=== PATIENT | male | born 1940 | race Caucasian/White ===

== ENCOUNTER 2017-04-12 22:29 | Inpatient (IN) | payer OTHER ==
[2017-04-12 23:32] VITALS: BMI 18.8
[2017-04-13] MEDS ORDERED: SODIUM CHLORIDE 1,000 ML IV STA (00:11)
--- NOTE | 2017-04-13 00:12 | PDOC ---
History of Present Illness - General History Source: Patient <ChrisCholo dill - Last Filed: 04/13/17 06:05> - History of Present Illness Initial Comments: 04/13/17 00:15 The patient is a 77 year old male, with a significant medical history of hyertension, hyperlipidemia, CAD, CHF, and seizures, who presents to the emergency department via ems from [facility] for evaluation of alterened mental status as per nursing staff today. As per nurse, the report given to her was that the patient became increasingly confused and vomited some undigested food after dinner. No fever was reported. The nurse states the patient usually communicated verbally, however, was not response to verbal or noxious stimuli. The patient was reportedly given oxygen and became slightly more responsive and ems was called. <Philly Toledo - Last Filed: 04/13/17 06:11> - General Chief Complaint: Altered Mental Status Stated Complaint: AMS Time Seen by Provider: 04/13/17 00:07 Past History - Past Medical History Cardiac Disorders: Yes (CAD) CHF: Yes Dementia: Yes GI Disorders: Yes (esophagial reflux) HTN: Yes Hypercholesterolemia: Yes Seizures: Yes - Surgical History Abdominal Surgery: No Appendectomy: No Cardiac Surgery: No Cholecystectomy: No Lung Surgery: No Neurologic Surgery: No Orthopedic Surgery: No - Immunization History Td Vaccination: Yes Immunization Up to Date: Yes (last tetanus was given 02/03) - Suicide/Smoking/Psychosocial Hx Smoking Status: Yes Smoking History: Unknown if ever smoked Years of Tobacco Use: 40 Have you smoked in the past 12 months: No Number of Cigarettes Smoked Daily: 15 Cigars Per Day: 1 Information on smoking cessation initiated: No 'Breaking Loose' booklet given: 12/03/11 Hx Alcohol Use: No Drug/Substance Use Hx: No Substance Use Type: None <Cholo Hannon - Last Filed: 04/13/17 06:05> <Philly Toledo - Last Filed: 04/13/17 06:11> - Past Medical History Allergies/Adverse Reactions: Allergies Allergy/AdvReac Type Severity Reaction Status Date / Time No Known Drug Allergies Allergy Verified 04/13/17 05:44 Home Medications: Ambulatory Orders Amlodipine Besylate 10 mg PO DAILY 04/13/17 Aspirin 81 mg PO DAILY 04/13/17 Carvedilol [Coreg] 25 mg PO DAILY 04/13/17 Isosorbide Mononitrate [Isosorbide Mononitrate ER] 30 mg PO DAILY 04/13/17 Levetiracetam 500 mg PO DAILY 04/13/17 Linagliptin [Tradjenta] 5 mg PO DAILY 04/13/17 Losartan Potassium 100 mg PO DAILY 04/13/17 Tamsulosin HCl 0.4 mg PO DAILY 04/13/17 Review of Systems - Review of Systems Able to Perform ROS?: No (AMS) <Philly Toledo - Last Filed: 04/13/17 06:11> *Physical Exam - Vital Signs Last Vital Signs Temp Pulse Resp BP Pulse Ox 99.9 F H 106 H 14 160/78 94 L 04/12/17 23:29 04/12/17 23:29 04/12/17 23:29 04/12/17 23:29 04/12/17 23:29 <hColo Hannon - Last Filed: 04/13/17 06:05> - Vital Signs Last Vital Signs Temp Pulse Resp BP Pulse Ox 99.9 F H 106 H 14 160/78 94 L 04/12/17 23:29 04/12/17 23:29 04/12/17 23:29 04/12/17 23:29 04/12/17 23:29 - Physical Exam Comments: 04/13/17 00:18 GENERAL: (+) Alert to name, but not answering questions appropriately. He denies physical complaints at this time. No acute distress. HEENT: Normocephalic, atraumatic. PERRLA, EOMI. No conjunctival pallor. Sclera are non- icteric. Moist mucous membranes. Oropharynx is clear. No raccoon or navarrete sign. NECK: Supple. Full ROM. No JVD. Carotid pulses 2+ and symmetric, without bruits. No thyromegaly. No lymphadenopathy. CARDIOVASCULAR: (+) tachycardic rate and normal rhythm. No murmurs, rubs, or gallops. Distal pulses are 2+ and symmetric. PULMONARY: (+) decreased breath signs in all lung chavis. Patient does not make a good effort to take deep breaths. No wheezing, rales or rhonchi. ABDOMINAL: Soft. Non-tender. Non-distended. No rebound or guarding. No organomegaly. Normoactive bowel sounds. MUSCULOSKELETAL Normal range of motion at all joints. No bony deformities or tenderness. No CVA tenderness. EXTREMITIES: No cyanosis. No clubbing. No edema. No calf tenderness. No bony deformities. SKIN: Warm and dry. Normal capillary refill. No rashes. No jaundice. NEUROLOGICAL: (+) arousable and responds to name. Cranial nerves 2-12 grossly intact without focal deficits. Normoreflexic in the upper and lower extremities. Normal speech. Toes are down-going bilaterally. <Philly Toledo - Last Filed: 04/13/17 06:11> Heart Score/ECG Review - Jarrell Comment: 04/13/17 00:40 EKG was read by Dr. Hannon at 00:36 Impression: Normal sinus rhythm. T wave abnormality. <Philly Toledo - Last Filed: 04/13/17 06:11> ED Treatment Course - LABORATORY CBC & Chemistry Diagram: 04/13/17 00:20 04/13/17 00:20 <Cholo Hannon - Last Filed: 04/13/17 06:05> - LABORATORY CBC & Chemistry Diagram: 04/13/17 00:20 04/13/17 00:20 - RADIOLOGY Radiograph Interpretation: EXAM: CT HEAD without contrast HISTORY: Head ache COMPARISON: None. FINDINGS: Brain parenchyma is normal in attenuation with no mass or hematoma. There is no midline shift. Mcgarry and white matter differentiation is normal. The third and lateral ventricles are prominent in size. There is no obstructing lesion or periventricular edema Sulci and extra-axial CSF spaces are normal. Intracranial vascular structures are normal in attenuation. There is no calvarial fracture. There is opacification of paranasal sinuses suggesting sinusitis. IMPRESSION: Mild ventriculomegaly. Correlation with prior studies, if available is recommended. There is no sulcal effacement or periventricular edema to suggest acute increased intracranial pressure. Sinusitis New Mackey MD 04/13/2017 02:47 EST <Philly Toledo - Last Filed: 04/13/17 06:11> Medical Decision Making - Medical Decision Making 04/13/17 06:06 Dr. Hannon: The scribe's documentation has been prepared under my direction and personally reviewed by me in its entirery. I confirm that the note above accurately reflects all work, treatment, procedures, and medical decision making performed by me. Pt will be admitted to [facility]. Spoke to Dr. Spence who will write orders for Dr. Ramirez <Cholo Hannon - Last Filed: 04/13/17 06:05> *DC/Admit/Observation/Transfer - Discharge Dispostion Admit: Yes <Cholo Hannon - Last Filed: 04/13/17 06:05> - Attestations Scribe Attestion: 04/13/17 00:18 Documentation prepared by Philly Toledo, acting as auditor medical claims for Cholo Hannon DO <Philly Toledo - Last Filed: 04/13/17 06:11> Diagnosis at time of Disposition: Altered mental state - Discharge Dispostion Condition at time of disposition: Stable - Referrals Referrals: Zuhair Leigh MD [Primary Care Provider] - - Patient Instructions - Post Discharge Activity
[2017-04-13 00:32] LABS: BASO % 0.5 % (0-2.0); EOS % 0.2 % (0-4.5); MCH 27.2 pg (25.7-33.7); MCHC 31.9 g/dl (32.0-35.9); MEAN PLT VOLUME 10.1 fl (7.5-11.1); NEUT % 76.1 % (42.8-82.8); PLATELET COUNT 148 K/MM3 (134-434); RDW 14.2 % (11.9-15.9); WHITE BLOOD COUNT 16.7 K/mm3 (4.0-10.0)
[2017-04-13 00:38] LABS: URINE APPEARANCE CLEAR; URINE BILIRUBIN NEGATIVE (NEGATIVE); URINE BLOOD 1+ (NEGATIVE); URINE COLOR LTYELLOW; URINE GLUCOSE (UA) NEGATIVE (NEGATIVE); URINE KETONE NEGATIVE (NEGATIVE); URINE LEUK ESTERASE NEGATIVE (NEGATIVE); URINE NITRITE NEGATIVE (NEGATIVE); URINE PROTEIN NEGATIVE (NEGATIVE); URINE UROBILINOGEN NEGATIVE mg/dL (0.2-1.0)
[2017-04-13 00:46] LABS: URINE BACTERIA RARE /hpf (NONE SEEN); URINE MUCUS RARE; URINE RBC 5 /hpf (0-3); URINE WBC <1 /hpf (3-5)
[2017-04-13 00:50] LABS: INR 1.12 (0.82-1.09); PROTHROMBIN TIME (PATIENT) 12.7 SEC (9.98-11.88)
[2017-04-13 01:02] LABS: ALBUMIN 3.6 g/dl (3.4-5.0); ANION GAP 12 (8-16); BILIRUBIN,TOTAL 0.4 mg/dL (0.2-1.0); CALCIUM 8.8 mg/dL (8.5-10.1); CO2 26 mmol/L (21-32); CREATININE 1.2 mg/dL (0.7-1.3); GLUCOSE,RANDOM 111 mg/dL (74-106); SGOT/AST 17 U/L (15-37); SGPT/ALT 14 U/L (12-78)
[2017-04-13 01:04] LABS: ALK PHOS 87 U/L (45-117); CPK 100 IU/L (39-308); TROPONIN I < 0.02 ng/ml (0.00-0.05)
[2017-04-13] MEDS ORDERED: PIPERACILLIN/TAZOB 3.375 GM/50 ML PRE-DOCKED IVPB ONE (06:03)
[2017-04-13] MEDS ORDERED: PIPERACILLIN/TAZOB 3.375 GM 3.375 GM/50 ML BAG IVPB ONE (06:14)
[2017-04-13 10:03] LABS: URINE LEUK ESTERASE Negative (NEGATIVE)
[2017-04-13 10:58] LABS: BASO % 0.3 % (0-2.0); MCH 26.6 pg (25.7-33.7); MCHC 31.4 g/dl (32.0-35.9); MEAN CELL VOLUME 84.8 fl (80-96); MEAN PLT VOLUME 9.6 fl (7.5-11.1); NEUT % 70.3 % (42.8-82.8); PLATELET COUNT 129 K/MM3 (134-434); RDW 14.2 % (11.9-15.9); WHITE BLOOD COUNT 19.6 K/mm3 (4.0-10.0)
--- NOTE | 2017-04-13 11:11 | CONSULT ---
Consultation: REQUESTING PROVIDER: CONSULT REQUEST: We have been asked to medically evaluate this patient for PNA. HISTORY OF PRESENT ILLNESS: 77 y/o M with PMH HTN, HLD, CAD, CHF, seizures, who came to the ED from [facility] for AMS. D/t pt's mental status, unable to gain hx. History provided by charge nurse at [facility]. As per nurse, yesterday in the evening, pt has one episode of NBNB emesis after dinner, and was subsequently noted to be minimally responsive to painful and tactile stimuli. At this time, pt's vital signs were: temp 97.3F, HR 100, RR, 18, BG 207. Pt received 02 and improved slightly. Due to pt's altered mental status, 911 was called and he was brought to ED. While in ED, pt was afebrile and tachycardic 106HR, with leukocytosis 16.7. Head CT was done which showed mild ventriculomegaly and sinusitis. CXR revealed no acute pathology and improvement since prior study (a yr ago)- cardiomegaly evident, sclerotic unfolded aorta, and elevated R hemidiaphragm. Pt received 1 dose of zosyn. ID team consulted for PNA. REVIEW OF SYSTEMS: CONSTITUTIONAL: Absent: fever, chills, diaphoresis, generalized weakness, malaise, loss of appetite, weight change HEENT: Absent: rhinorrhea, nasal congestion, throat pain, throat swelling, difficulty swallowing, mouth swelling, ear pain, eye pain, visual changes CARDIOVASCULAR: +tachycardic Absent: chest pain, syncope, palpitations, irregular heart rate, lightheadedness , peripheral edema RESPIRATORY: Absent: cough, shortness of breath, dyspnea with exertion, orthopnea, wheezing, stridor, hemoptysis GASTROINTESTINAL:+abdominal distension Absent: abdominal pain, abdominal distension, nausea, vomiting, diarrhea, constipation, melena, hematochezia GENITOURINARY: +fecal incontinence Absent: dysuria, frequency, urgency, hesitancy, hematuria, flank pain, genital pain MUSCULOSKELETAL: Absent: myalgia, arthralgia, joint swelling, back pain, neck pain SKIN: Absent: rash, itching, pallor HEMATOLOGIC/IMMUNOLOGIC: Absent: easy bleeding, easy bruising, lymphadenopathy, frequent infections ENDOCRINE: Absent: unexplained weight gain, unexplained weight loss, heat intolerance, cold intolerance NEUROLOGIC: +altered mental status Absent: headache, focal weakness or paresthesias, dizziness, unsteady gait, seizure, mental status changes, bladder or bowel incontinence PSYCHIATRIC: Absent: anxiety, depression, suicidal or homicidal ideation, hallucinations. PHYSICAL EXAMINATION Vital Signs - 24 hr 04/12/17 04/13/17 04/13/17 23:29 05:32 08:02 Temperature 99.9 F H 99.4 F Pulse Rate 106 H Pulse Rate [ 80 89 Left Radial] Respiratory 14 18 20 Rate Blood Pressure 160/78 Blood Pressure 178/75 152/75 [Left Arm] O2 Sat by Pulse 94 L 95 94 L Oximetry (%) GENERAL: Awake, AAOx0, minimally responsive. Grunting, mumbling. Appears to be in mild distress. on 2L NC 02 HEAD: Normal with no signs of trauma. EYES: Pupils equal, round and reactive to light, extraocular movements intact, sclera anicteric, conjunctiva clear. EARS, NOSE, THROAT: Ears normal, nares patent, oropharynx clear without exudates. LUNGS: decreased breath sounds appreciated. withuot crackles/rhonchi/wheezes. HEART: Regular rate and rhythm, normal S1 and S2 without murmur, rub or gallop. ABDOMEN: Soft, tender to palpation in RUQ, RLQ, distended, normoactive bowel sounds, no guarding, no rebound LOWER EXTREMITIES: 2+ posterior tibial pulses, warm, dry. 1+ pitting edema b/l. NEUROLOGICAL: Cranial nerves II-XII appear to be intact, however pt unable to speak or follow commands. Laboratory Tests 04/13/17 10:49 WBC 19.6 H Hgb 11.5 L Hct 36.7 Plt Count 129 L Active Medications Generic Name Dose Route Start Last Admin Trade Name Freq PRN Reason Stop Dose Admin Acetaminophen 650 mg 04/13/17 08:01 Tylenol - PO Q4H PRN FEVER OR PAIN Amlodipine Besylate 10 mg 04/13/17 10:00 Norvasc - PO DAILY [facility] Aspirin 81 mg 04/13/17 10:00 Asa - PO DAILY [facility] Carvedilol 25 mg 04/13/17 10:00 Coreg - PO DAILY [facility] Heparin Sodium (Porcine) 5,000 unit 04/13/17 10:00 Heparin - SQ BID [facility] Insulin Aspart 1 vial 04/13/17 11:00 Novolog Vial Sliding Scale - SQ ACHS ANTHONY Protocol Isosorbide Mononitrate 30 mg 04/13/17 10:00 Imdur - PO DAILY ANTHONY Levetiracetam 500 mg 04/13/17 10:00 Keppra - PO DAILY ANTHONY Losartan Potassium 100 mg 04/13/17 10:00 Cozaar - PO DAILY ANTHONY Sitagliptin Phosphate 50 mg 04/13/17 08:15 Januvia - PO AM ANTHONY Tamsulosin HCl 0.4 mg 04/13/17 08:30 Flomax - PO DAILY@0830 [facility] Microbiology 04/13/17 Urine cx- pending 04/13/17 Blood cx-pending ASSESSMENT/PLAN: #Altered mental status, lethargy -afebrile, however climbing white count (16.7 to 19) -BMP WNL -Received 1 dose of zosyn in ED -Continue ceftriaxone 2mg IVPB, tx sinusitis -Continue Flagyl 500 mg q8H -anaerobic coverage To determine source of infection -F/u CT abdomen & pelvis- pt endorsing R sided abdominal pain -F/u CT chest to r/o aspiration -F/u urine cx -F/u blood cx -F/u ABG- determine if hypercapnic -F/u rectal temp Sonya Sherman MD PGY-1 ID Team Dispo: We will continue to follow the patient. Thank you for this consultative opportunity. Visit type - Emergency Visit Emergency Visit: No - New Patient This patient is new to me today: Yes Date on this admission: 04/13/17 - Critical Care Critical Care patient: No
--- NOTE | 2017-04-13 11:12 | HP ---
Admitting History and Physical - Primary Care Physician PCP: Marycruz Ramirez - Admission Chief Complaint: ALTERED MENTAL STATUS/TOXIC METABOLIC ENCEPHALOPATHY History of Present Illness: The patient is a 77 year old male, with a significant medical history of hyertension, hyperlipidemia, CAD, CHF, and seizures, who presents to the emergency department via ems from [facility] for evaluation of alterened mental status as per nursing staff today. As per nurse, the report given to her was that the patient became increasingly confused and vomited some undigested food after dinner. No fever was reported. The nurse states the patient usually communicated verbally, however, was not response to verbal or noxious stimuli. The patient was reportedly given oxygen and became slightly more responsive and ems was called. 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 Cardiovascular: Yes: CAD Gastrointestinal: Yes: Constipation - Smoking History Smoking history: Unknown if ever smoked Have you smoked in the past 12 months: No Aproximately how many cigarettes per day: 15 - Alcohol/Substance Use Hx Alcohol Use: No Home Medications - Allergies Allergies/Adverse Reactions: Allergies Allergy/AdvReac Type Severity Reaction Status Date / Time No Known Drug Allergies Allergy Verified 04/13/17 05:44 - Home Medications Home Medications: Ambulatory Orders Amlodipine Besylate 10 mg PO DAILY 04/13/17 Aspirin 81 mg PO DAILY 04/13/17 Carvedilol [Coreg] 25 mg PO DAILY 04/13/17 Isosorbide Mononitrate [Isosorbide Mononitrate ER] 30 mg PO DAILY 04/13/17 Levetiracetam 500 mg PO DAILY 04/13/17 Linagliptin [Tradjenta] 5 mg PO DAILY 04/13/17 Losartan Potassium 100 mg PO DAILY 04/13/17 Tamsulosin HCl 0.4 mg PO DAILY 04/13/17 Review of Systems - Review of Systems Constitutional: reports: Malaise, Weakness Eyes: reports: No Symptoms HENT: reports: No Symptoms Neck: reports: No Symptoms Cardiovascular: reports: No Symptoms Respiratory: reports: SOB Genitourinary: reports: Other Musculoskeletal: reports: Muscle Weakness Integumentary: reports: No Symptoms Neurological: reports: Confusion Endocrine: reports: No Symptoms Hematology/Lymphatic: reports: No Symptoms Psychiatric: reports: Other Physical Examination Vital Signs: Vital Signs Temperature 99.4 F 04/13/17 05:32 Pulse Rate 89 04/13/17 08:02 Respiratory Rate 20 04/13/17 08:02 Blood Pressure 152/75 04/13/17 08:02 O2 Sat by Pulse Oximetry (%) 94 L 04/13/17 08:02 Constitutional: Yes: Mild Distress Eyes: Yes: WNL HENT: Yes: WNL Neck: Yes: WNL Cardiovascular: Yes: WNL Respiratory: Yes: On Nasal O2, Poor Air Entry Gastrointestinal: Yes: Distention Renal/: Yes: Incontinence Musculoskeletal: Yes: Muscle Weakness Extremities: Yes: WNL Edema: No Peripheral Pulses WNL: Yes Integumentary: Yes: WNL Wound/Incision: Yes: Clean/Dry Neurological: Yes: Confusion, Other ...Motor Strength: LLE, RLE Psychiatric: Yes: Other Labs: CBC, BMP 04/13/17 10:49 04/13/17 00:20 Imaging - Results Cat Scan: Report Reviewed Assessment/Plan TOXIC METABOLIC ENCEPHALOPATHY DM HTN DEMENTIA LEUKOCYTOSIS PLAN : IV ABX BLOOD CULTURES NEUROLOGY/ID CONSULT RESP CARE AND F/U PT EVAL DVT PROPHYLAXIS
--- NOTE | 2017-04-13 11:20 | EKG ---
Test Reason : Blood Pressure : / mmHG Vent. Rate : 100 BPM Atrial Rate : 100 BPM P-R Int : 160 ms QRS Dur : 098 ms QT Int : 364 ms P-R-T Axes : -03 010 035 degrees QTc Int : 469 ms NORMAL SINUS RHYTHM SEPTAL INFARCT (CITED ON OR BEFORE 04-JUN-2011) T WAVE ABNORMALITY, CONSIDER LATERAL ISCHEMIA ABNORMAL ECG WHEN COMPARED WITH ECG OF 31-JAN-2016 14:14, T WAVE INVERSION LESS EVIDENT IN LATERAL LEADS Confirmed by NICOLE LANGFORD MD ([id number]) on 04/13/2017 11:20:03 AM Referred By: Confirmed By:NICOLE LANGFORD MD
[2017-04-13] MEDS ORDERED: INSULIN (NOVOLOG) ASPART 100 UNITS/ML 10ML VIAL ONE ×2 (11:30→18:11)
[2017-04-13] MEDS: sitaGLIPtin PHOSPHATE 50 MG TABLET PO SCH (11:40)
[2017-04-13] MEDS: INSULIN SLIDING SCALE (NOVOLOG) 1 VIAL SQ SCH ×3 (11:40→22:43)
[2017-04-13] MEDS: HEPARIN NA (PORCINE) 5,000 UNITS/ML 1ML VIAL SQ SCH ×2 (11:40→22:38)
[2017-04-13] MEDS: levETIRAcetam 500 MG TABLET (FP) PO SCH (11:41)
[2017-04-13] MEDS: ISOSORBIDE MONONITRATE 30 MG TAB.SR.24H (FP) PO SCH (11:41)
[2017-04-13] MEDS: amLODIPine BESYLATE 10 MG TABLET (FP) PO SCH (11:41)
[2017-04-13] MEDS: LOSARTAN POTASSIUM 50 MG TABLET (FP) PO SCH (11:41)
[2017-04-13] MEDS: TAMSULOSIN HCL 0.4 MG CAP.ER.24H (FP) PO SCH (11:41)
[2017-04-13] MEDS: CARVEDILOL 25 MG TABLET (FP) PO SCH (11:42)
[2017-04-13] MEDS: ASPIRIN 81 MG CHEWABLE TABLETS PO SCH (11:42)
--- NOTE | 2017-04-13 14:01 | PN ---
Teaching Attending Note Name of Resident: Sonya Sherman ATTENDING PHYSICIAN STATEMENT I saw and evaluated the patient. I reviewed the resident's note and discussed the case with the resident. I agree with the resident's findings and plan as documented. SUBJECTIVE: admitted with confusion and one episode of vomiting at the NM now more alert, knows his name, able to follow simple commands- complains of abdominal pain OBJECTIVE: Vital Signs Period Temp Pulse Resp BP Sys/Foley Pulse Ox Last 24 Hr 99.1 F-99.9 F 80-106 14-20 143-178/58-78 94-97 no thrush or pharyngitis no nuchal rigidity lungs clear abd soft,nt ext no edema no rash CBC, BMP 04/13/17 10:49 04/13/17 00:[address] scan with sinusitis ASSESSMENT AND PLAN: leukocytosis lethargy cultures pending would get abg would get ct scan abd/pelvis given complaints of abdominal pain ceftriaxone/flagyl for now Problem List - Problems (1) Lethargy Code(s): R53.83 - OTHER FATIGUE (2) Leukocytosis Code(s): D72.829 - ELEVATED WHITE BLOOD CELL COUNT, UNSPECIFIED
--- NOTE | 2017-04-13 14:13 | PN ---
Progress Note (short form) - Note Progress Note: PULMONARY CONSULTATION DICTATED 04/13/17 IMP ALTERED MENTAL STATUS LIKELY TOXIC METABOLIC ENCEPHALOPATHY R/O INFECTIOUS ?GI ? ASPIRATION ASHD CHF H/O SEIZURE DISORDER HTN DM DEMENTIA PLAN ANTIBIOTICS CULTURES FLUIDS ABG CHEST CT DVT PROPHYLAXIS DR LAMAS Problem List - Problems (1) Altered mental state Code(s): R41.82 - ALTERED MENTAL STATUS, UNSPECIFIED (2) Lethargy Code(s): R53.83 - OTHER FATIGUE (3) Leukocytosis Code(s): D72.829 - ELEVATED WHITE BLOOD CELL COUNT, UNSPECIFIED (4) Seizure Code(s): R56.9 - UNSPECIFIED CONVULSIONS
[2017-04-13 14:27] LABS: ARTERIAL BLD GAS O2 SATURATION 97.3 % (90-98.9); ARTERIAL BLOOD GAS BASE EXCESS 2.7 meq/l (-2-2); ARTERIAL BLOOD GAS HCO3 27.3 meq/L (22-26)
[2017-04-13 14:30] LABS: ART PUNCT SITE RIGHT RADIAL; PT. ON O2? YES
[2017-04-13] MEDS: METRONIDAZOLE 500 MG PREMIXED 500 MG/100 ML MG IVPB SCH ×2 (14:45→18:47)
[2017-04-13] MEDS: ACETAMINOPHEN 325 MG TABLET (FP) PO PRN (14:47)
[2017-04-13] MEDS: CEFTRIAXONE 2 GM in DEXTROSE 5%-WATER - 100 ML IVPB SCH (16:29)
[2017-04-13] MEDS: DEXTROSE 5%-NORMAL SALINE 1,000 ML IV SCH (18:48)
--- NOTE | 2017-04-13 19:55 | CONS ---
DATE OF CONSULTATION: 04/13/2017 PULMONARY CONSULTATION REFERRING PHYSICIAN: Marycruz Ramirez M.D. HISTORY OF PRESENT ILLNESS: Patient is lethargic. The patient is a 77-year-old male with a past medical history of hypertension, hyperlipidemia, ASHD, congestive heart failure, seizure disorder, resident [facility], was transferred to [facility] earlier this a.m. secondary to altered mental status. The patient according to chart, the nurse noted the patient became increasingly more confused, apparently vomited some undigested food after dinner. Apparently states there is no fever, no chest congestion, no shortness of breath. Apparently he is given O2 and was slightly more responsive and was transferred to [facility]. On admission, the patient underwent CT scan of the head which was within normal limits. Chest x-ray did not reveal any evidence of any acute process. He had noticed he was noted to have elevated WBC on CBC. No further history is available at this time. PAST MEDICAL HISTORY: Again, past medical history includes hypertension, hyperlipidemia, CHF, ASHD, seizure disorder, history of smoking. SOCIAL HISTORY: Unknown. REVIEW OF SYSTEMS: Unable to obtain. CURRENT MEDICATIONS: Include Flomax, Tylenol, Cozaar, ceftriaxone, heparin, Keppra, Coreg, Norvasc, Januvia, Novolog, Imdur, and aspirin. PHYSICAL EXAMINATION: General: The patient is a this male, well developed, lethargic, but responsive to verbal stimuli, in no acute respiratory distress. Vital signs: O2 saturation is 98% on 2 L. Blood pressure is 143/58, respiratory rate is 18, and temperature is 99.1. HEENT: Head is normocephalic, atraumatic. Neck: Supple. Heart: Regular. S1, S2. Chest: Poor inspiratory effort. No rhonchi, wheezes appreciated. Abdomen: Soft. Bowel sounds positive. Extremities: No cyanosis, edema. LABORATORY: WBC is 10.6, hemoglobin 11.5, hematocrit 36.7, platelet count 129,000. INR is 1.12, BUN 20, creatinine 1.2, lactate is 1.2. Chest x-ray, no infiltrates, no effusions, elevated right semi-diaphragm. IMPRESSION: 1. Altered mental status, etiology to be determined. Likely toxic metabolic. 2. Rule out infectious process. Rule out post ictal state. 3. . 4. Hypertension. PLAN: Antibiotics as per ID. Check arterial blood gases. Obtain cultures. Neurology evaluation. SEN LAMAS M.D. SUSAN/[id number]
[2017-04-14] MEDS: METRONIDAZOLE 500 MG PREMIXED 500 MG/100 ML MG IVPB SCH ×3 (02:24→17:06)
[2017-04-14] MEDS: INSULIN SLIDING SCALE (NOVOLOG) 1 VIAL SQ SCH ×4 (06:02→22:12)
[2017-04-14] MEDS: sitaGLIPtin PHOSPHATE 50 MG TABLET PO SCH (06:05)
[2017-04-14 07:13] LABS: BASO % 0.3 % (0-2.0); EOS % 1.4 % (0-4.5); MCH 26.8 pg (25.7-33.7); MCHC 31.3 g/dl (32.0-35.9); MEAN CELL VOLUME 85.6 fl (80-96); MEAN PLT VOLUME 9.4 fl (7.5-11.1); NEUT % 52.3 % (42.8-82.8); PLATELET COUNT 119 K/MM3 (134-434); RDW 13.9 % (11.9-15.9); WHITE BLOOD COUNT 13.3 K/mm3 (4.0-10.0)
[2017-04-14 07:49] LABS: ALBUMIN 2.8 g/dl (3.4-5.0); ANION GAP 7 (8-16); CALCIUM 7.7 mg/dL (8.5-10.1); CO2 27 mmol/L (21-32); GLUCOSE,RANDOM 110 mg/dL (74-106); SGOT/AST 11 U/L (15-37); SGPT/ALT 11 U/L (12-78)
[2017-04-14 07:52] LABS: ALK PHOS 66 U/L (45-117); BILIRUBIN,TOTAL 0.4 mg/dL (0.2-1.0); TOT PROT 6.3 g/dl (6.4-8.2)
[2017-04-14] MEDS ORDERED: PT OWN MED DRAWER 7, Y5N ONE ×2 (10:44→20:30)
[2017-04-14] MEDS: DEXTROSE 5%-NORMAL SALINE 1,000 ML IV SCH (10:56)
[2017-04-14] MEDS: levETIRAcetam 500 MG TABLET (FP) PO SCH ×2 (10:57→22:08)
[2017-04-14] MEDS: amLODIPine BESYLATE 10 MG TABLET (FP) PO SCH (10:57)
[2017-04-14] MEDS: ISOSORBIDE MONONITRATE 30 MG TAB.SR.24H (FP) PO SCH (10:57)
[2017-04-14] MEDS: ASPIRIN 81 MG CHEWABLE TABLETS PO SCH (10:57)
[2017-04-14] MEDS: LOSARTAN POTASSIUM 50 MG TABLET (FP) PO SCH (10:57)
[2017-04-14] MEDS: TAMSULOSIN HCL 0.4 MG CAP.ER.24H (FP) PO SCH (10:57)
[2017-04-14] MEDS: HEPARIN NA (PORCINE) 5,000 UNITS/ML 1ML VIAL SQ SCH ×2 (10:57→22:08)
[2017-04-14] MEDS: CARVEDILOL 25 MG TABLET (FP) PO SCH (10:57)
[2017-04-14] MEDS ORDERED: SODIUM PHOSPHATE/NA BIPHOS 133 ML ENEMA PR ONE (11:16)
--- NOTE | 2017-04-14 11:19 | PN ---
Progress Note, Physician Chief Complaint: MORE ALERT TODAY DENIES CHEST PAIN OR SOB - Current Medication List Current Medications: Active Medications Acetaminophen (Tylenol -) 650 mg PO Q4H PRN PRN Reason: FEVER OR PAIN Last Admin: 04/13/17 14:47 Dose: 650 mg Amlodipine Besylate (Norvasc -) 10 mg PO DAILY [facility] Last Admin: 04/14/17 10:57 Dose: 10 mg Aspirin (Asa -) 81 mg PO DAILY [facility] Last Admin: 04/14/17 10:57 Dose: 81 mg Carvedilol (Coreg -) 25 mg PO DAILY [facility] Last Admin: 04/14/17 10:57 Dose: 25 mg Heparin Sodium (Porcine) (Heparin -) 5,000 unit SQ BID [facility] Last Admin: 04/14/17 10:57 Dose: 5,000 unit Ceftriaxone Sodium 2 gm/ (Dextrose) 100 mls @ 200 mls/hr IVPB DAILY [facility] Last Admin: 04/13/17 16:29 Dose: 200 mls/hr Metronidazole (Flagyl 500mg Premixed Ivpb -) 500 mg in 100 mls @ 100 mls/hr IVPB Q8H-IV [facility] Last Admin: 04/14/17 09:07 Dose: 100 mls/hr Dextrose/Sodium Chloride (D5-Ns -) 1,000 mls @ 80 mls/hr IV ASDIR [facility] Last Admin: 04/14/17 10:56 Dose: 80 mls/hr Insulin Aspart (Novolog Vial Sliding Scale -) 1 vial SQ ACHS ANTHONY PRN Reason: Protocol Last Admin: 04/14/17 06:02 Dose: Not Given Isosorbide Mononitrate (Imdur -) 30 mg PO DAILY [facility] Last Admin: 04/14/17 10:57 Dose: 30 mg Levetiracetam (Keppra -) 500 mg PO DAILY [facility] Last Admin: 04/14/17 10:57 Dose: 500 mg Losartan Potassium (Cozaar -) 100 mg PO DAILY [facility] Last Admin: 04/14/17 10:57 Dose: 100 mg Sitagliptin Phosphate (Januvia -) 50 mg PO AM [facility] Last Admin: 04/14/17 06:05 Dose: Not Given Tamsulosin HCl (Flomax -) 0.4 mg PO DAILY@0830 [facility] Last Admin: 04/14/17 10:57 Dose: 0.4 mg - Objective Vital Signs: Vital Signs Temperature 98.0 F 04/14/17 09:40 Pulse Rate 78 04/14/17 09:40 Respiratory Rate 18 04/14/17 09:40 Blood Pressure 159/77 04/14/17 09:40 O2 Sat by Pulse Oximetry (%) 96 04/14/17 09:00 Constitutional: Yes: Mild Distress Eyes: Yes: WNL HENT: Yes: WNL Neck: Yes: WNL Cardiovascular: Yes: WNL Respiratory: Yes: On Nasal O2, SOB, Wheezes Gastrointestinal: Yes: Tenderness Genitourinary: Yes: Incontinence Musculoskeletal: Yes: Muscle Weakness Extremities: Yes: WNL Edema: No Peripheral Pulses WNL: Yes Integumentary: Yes: WNL Neurological: Yes: Pre-Existing Deficit ...Motor Strength: LLE, RLE Psychiatric: Yes: Other Labs: CBC, BMP 04/14/17 06:20 04/14/17 06:20 INR, PTT INR 1.12 (0.82-1.09) 04/13/17 00:20 Assessment/Plan TOXIC METABOLIC ENCEPHALOPATHY DM HTN DEMENTIA LEUKOCYTOSIS PLAN : IV ABX BLOOD CULTURES NEUROLOGY/ID CONSULT RESP CARE AND F/U PT EVAL DVT PROPHYLAXIS TELEMETRY TRANSFER MRI BRAIN SOFT SUPERFICIAL ABD NODULE NO NEED FOR BIOPSY LIKELY HEMATOMA FROM SQ HEPARIN
--- NOTE | 2017-04-14 11:43 | CONSULT ---
Consult Consult Specialty:: General Surgery Referred by:: Dr. Ramirez Reason for Consultation:: abdominal wall nodule - History of Present Illness Chief Complaint: abdominal pain History of Present Illness: 77yo M with multiple medical problems and no abdominal surgical history, admitted from [facility] for episode of vomiting after a meal, change in mental status, abdominal pain. WBC was 16, up to 19, now down to 13. CT was done in ER , showing copious stool throughout colon, no obstruction, abdominal wall nodule in left mid-abdomen, bright on noncontrast scan. Pt has been on diet, no vomiting. More responsive since admission. States he is feeling better. Denies tenderness on exam now. Has no BM currently. Surgery consulted to evaluate nodule. 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 Cardio/Vascular: Yes: CAD, CHF, HTN, Hyperlipdemia Gastrointestinal: Yes: Constipation Endocrine: Yes: Diabetes Mellitus - Past Surgical History Past Surgical History: Yes: None (pt denies abdominal surgery) - Alcohol/Substance Use Hx Alcohol Use: No - Smoking History Smoking history: Unknown if ever smoked Have you smoked in the past 12 months: No - Social History Usual Living Arrangement: Jail Home Medications - Allergies Allergies/Adverse Reactions: Allergies Allergy/AdvReac Type Severity Reaction Status Date / Time No Known Drug Allergies Allergy Verified 04/13/17 05:44 - Home Medications Home Medications: Ambulatory Orders Amlodipine Besylate 10 mg PO DAILY 04/13/17 Aspirin 81 mg PO DAILY 04/13/17 Carvedilol [Coreg] 25 mg PO DAILY 04/13/17 Isosorbide Mononitrate [Isosorbide Mononitrate ER] 30 mg PO DAILY 04/13/17 Levetiracetam 500 mg PO DAILY 04/13/17 Linagliptin [Tradjenta] 5 mg PO DAILY 04/13/17 Losartan Potassium 100 mg PO DAILY 04/13/17 Tamsulosin HCl 0.4 mg PO DAILY 04/13/17 Family Disease History - Family Disease History Family History: Unable to Obtain (pt unable to provide) Review of Systems Unable to obtain ROS, reason: ltd - lang and dementia - Review of Systems Constitutional: denies: Chills, Fever Gastrointestinal: reports: Abdominal Pain, Constipation, 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 - has been responsive here) , Seizure (disorder) Physical Exam Vital Signs: Vital Signs Temperature 98.0 F 04/14/17 09:40 Pulse Rate 78 04/14/17 09:40 Respiratory Rate 18 04/14/17 09:40 Blood Pressure 159/77 04/14/17 09:40 O2 Sat by Pulse Oximetry (%) 96 04/14/17 09:00 Constitutional: Yes: Well Nourished, No Distress, Calm Eyes: Yes: Conjunctiva Clear, EOM Intact HENT: Yes: Atraumatic, Normocephalic Neck: Yes: Supple, Trachea Midline Cardiovascular: Yes: Regular Rate and Rhythm, Murmur (systolic prominent) Respiratory: Yes: Regular, CTA Bilaterally Gastrointestinal: Yes: Normal Bowel Sounds, Soft, Distention (with some tympany) , Palpable Mass (small nodule palpable subcutaneously in L midabdomen just above umbilical level, nontender, no overlying skin changes, nonmobile). No: Tenderness, Tenderness, Epigastrium ...Rectal Exam: Yes: Sphincter Tone Normal, Other (prostate large, firm; soft brown stool in vault, no tenderness, no gross blood) Renal/: Yes: Incontinence (? in diaper). No: CVA Tenderness - Left, CVA Tenderness - Right, Moreno Present Musculoskeletal: No: Joint Stiffness, Joint Swelling Extremities: No: Cool, Cyanosis Integumentary: No: Bruising, Jaundice, Rash Neurological: Yes: Alert, Oriented (seems to be, though poor historian) Psychiatric: Yes: Alert, Oriented Labs: CBC, BMP 04/14/17 06:20 04/14/17 06:20 CMP Sodium 143 mmol/L (136-145) 04/14/17 06:20 Potassium 4.0 mmol/L (3.5-5.1) 04/14/17 06:20 Chloride 109 mmol/L (98-107) H 04/14/17 06:20 Carbon Dioxide 27 mmol/L (21-32) 04/14/17 06:20 Anion Gap 7 (8-16) L 04/14/17 06:20 BUN 17 mg/dL (7-18) 04/14/17 06:20 Creatinine 1.0 mg/dL (0.7-1.3) 04/14/17 06:20 Creat Clearance w eGFR > 60 (>60) 04/14/17 06:20 POC Glucometer 96 UNITS (80-120) 04/14/17 05:26 Random Glucose 110 mg/dL (74-106) H 04/14/17 06:20 Lactic Acid 1.2 mmol/L (0.4-2.0) 04/13/17 00:20 Calcium 7.7 mg/dL (8.5-10.1) L 04/14/17 06:20 Total Bilirubin 0.4 mg/dL (0.2-1.0) 04/14/17 06:20 AST 11 U/L (15-37) L D 04/14/17 06:20 ALT 11 U/L (12-78) L D 04/14/17 06:20 Alkaline Phosphatase 66 U/L (45-117) D 04/14/17 06:20 Creatine Kinase 100 IU/L (39-308) 04/13/17 00:20 Troponin I < 0.02 ng/ml (0.00-0.05) 04/13/17 10:49 Total Protein 6.3 g/dl (6.4-8.2) L D 04/14/17 06:20 Albumin 2.8 g/dl (3.4-5.0) L D 04/14/17 06:20 Urine Test Results Urine Color Ltyellow 04/13/17 00:24 Urine Appearance Clear 04/13/17 00:24 Urine pH 6.0 (5.0-8.0) 04/13/17 00:24 Ur Specific Douglas 1.012 (1.001-1.035) 04/13/17 00:24 Urine Protein Negative (NEGATIVE) 04/13/17 00:24 Urine Glucose (UA) Negative (NEGATIVE) 04/13/17 00:24 Urine Ketones Negative (NEGATIVE) 04/13/17 00:24 Urine Blood 1+ (NEGATIVE) H 04/13/17 00:24 Urine Nitrite Negative (NEGATIVE) 04/13/17 00:24 Urine Bilirubin Negative (NEGATIVE) 04/13/17 00:24 Ur Leukocyte Esterase Negative (NEGATIVE) 04/13/17 00:24 Ur Epithelial Cells Rare /HPF (FEW) 04/13/17 00:24 Urine Bacteria Rare /hpf (NONE SEEN) 04/13/17 00:24 Urine Mucus Rare 04/13/17 00:24 Imaging - Results Cat Scan: Report Reviewed (1.4cm soft tissue nodule in left abdominal wall subcutaneous, appears bright - ?small hematoma vs tissue nodule?; no obstruction , copious stool), Image Reviewed Problem List - Problems (1) Abdominal wall mass Assessment/Plan: abdominal wall nodule seen on CT, nontender with no skin changes unclear etiology - ? if related to subcutaneous injection vs soft tissue mass given asymptomatic nature, would not pursue excision at this time Code(s): R22.2 - LOCALIZED SWELLING, MASS AND LUMP, TRUNK (2) Constipation Assessment/Plan: soft stool in vault agree with plan for enemas and treatment for constipation abdomen currently nontender but distended suspect constipation contributing to abdominal pain Code(s): K59.00 - CONSTIPATION, UNSPECIFIED Qualifiers: Constipation type: unspecified constipation type Qualified Code(s): K59.00 - Constipation, unspecified (3) Abdominal pain Assessment/Plan: better per pt Code(s): R10.9 - UNSPECIFIED ABDOMINAL PAIN Qualifiers: Abdominal location: unspecified location Qualified Code(s): R10.9 - Unspecified abdominal pain (4) Vomiting alone Assessment/Plan: no more here Code(s): R11.11 - VOMITING WITHOUT NAUSEA Qualifiers: Vomiting type: unspecified Vomiting Intractability: non-intractable Qualified Code(s): R11.11 - Vomiting without nausea
[2017-04-14] MEDS ORDERED: INSULIN (NOVOLOG) ASPART 100 UNITS/ML 10ML VIAL ONE (11:57)
[2017-04-14] MEDS: CEFTRIAXONE 2 GM in DEXTROSE 5%-WATER - 100 ML IVPB SCH (11:59)
--- NOTE | 2017-04-14 12:19 | PN ---
Progress Note (short form) - Note Progress Note: Awake and responsive. Apparently improved from yesterday. Breathing comfortable on 2 L NC O2. Intake & Output 04/11/17 04/12/17 04/13/17 04/14/17 23:59 23:59 23:59 23:59 Intake Total 750 1080 Balance 750 1080 Weight 128 lb 128 lb Last Vital Signs Temp Pulse Resp BP Pulse Ox 98.0 F 78 18 159/77 96 04/14/17 09:40 04/14/17 09:40 04/14/17 09:40 04/14/17 09:40 04/14/17 09:00 Active Medications Acetaminophen (Tylenol -) 650 mg PO Q4H PRN PRN Reason: FEVER OR PAIN Last Admin: 04/13/17 14:47 Dose: 650 mg Amlodipine Besylate (Norvasc -) 10 mg PO DAILY [facility] Last Admin: 04/14/17 10:57 Dose: 10 mg Aspirin (Asa -) 81 mg PO DAILY [facility] Last Admin: 04/14/17 10:57 Dose: 81 mg Carvedilol (Coreg -) 25 mg PO DAILY [facility] Last Admin: 04/14/17 10:57 Dose: 25 mg Heparin Sodium (Porcine) (Heparin -) 5,000 unit SQ BID ANTHONY Last Admin: 04/14/17 10:57 Dose: 5,000 unit Ceftriaxone Sodium 2 gm/ (Dextrose) 100 mls @ 200 mls/hr IVPB DAILY [facility] Last Admin: 04/14/17 11:59 Dose: 200 mls/hr Metronidazole (Flagyl 500mg Premixed Ivpb -) 500 mg in 100 mls @ 100 mls/hr IVPB Q8H-IV ANTHONY Last Admin: 04/14/17 09:07 Dose: 100 mls/hr Dextrose/Sodium Chloride (D5-Ns -) 1,000 mls @ 80 mls/hr IV ASDIR [facility] Last Admin: 04/14/17 10:56 Dose: 80 mls/hr Insulin Aspart (Novolog Vial Sliding Scale -) 1 vial SQ ACHS ANTHONY PRN Reason: Protocol Last Admin: 04/14/17 12:03 Dose: Not Given Isosorbide Mononitrate (Imdur -) 30 mg PO DAILY [facility] Last Admin: 04/14/17 10:57 Dose: 30 mg Levetiracetam (Keppra -) 500 mg PO DAILY [facility] Last Admin: 04/14/17 10:57 Dose: 500 mg Losartan Potassium (Cozaar -) 100 mg PO DAILY [facility] Last Admin: 04/14/17 10:57 Dose: 100 mg Sitagliptin Phosphate (Januvia -) 50 mg PO AM [facility] Last Admin: 04/14/17 06:05 Dose: Not Given Tamsulosin HCl (Flomax -) 0.4 mg PO DAILY@0830 [facility] Last Admin: 04/14/17 10:57 Dose: 0.4 mg Constitutional: Yes: NAD Eyes: Yes: Conjunctiva Clear, EOM Intact HENT: Yes: Atraumatic, Normocephalic Neck: Yes: Supple, Trachea Midline Cardiovascular: Yes: Regular Rate and Rhythm, Murmur (systolic prominent) Respiratory: Yes: CTA Bilaterally Gastrointestinal: Yes: Normal Bowel Sounds, Soft, Distention, small SQ mass. No : Tenderness, Tenderness, Epigastrium ...Rectal Exam: Yes: Sphincter Tone Normal, Other (prostate large, firm; soft brown stool in vault, no tenderness, no gross blood) Renal/: Yes: Incontinence. No: CVA Tenderness - Left, CVA Tenderness - Right , Moreno Present Musculoskeletal: No: Joint Stiffness, Joint Swelling Extremities: No: Cool, Cyanosis Integumentary: No: Bruising, Jaundice, Rash Neurological: Yes: Awake, mildly confused Psychiatric: Yes: Alert, Oriented Labs: Laboratory Results - last 24 hr 04/13/17 04/13/17 04/13/17 13:43 16:59 22:42 WBC RBC Hgb Hct MCV MCH MCHC RDW Plt Count MPV Neutrophils % Lymphocytes % Monocytes % Eosinophils % Basophils % Puncture Site Right radial ABG pH 7.40 ABG pCO2 at Pt Temp 44.6 ABG pO2 at Pt Temp 97.0 D ABG HCO3 27.3 H ABG O2 Sat (Measured) 97.3 ABG O2 Content 15.0 ABG Base Excess 2.7 H Freddie Test Y Oxygen Flow Rate Yes Sodium Potassium Chloride Carbon Dioxide Anion Gap BUN Creatinine Creat Clearance w eGFR POC Glucometer 146 121 Random Glucose Calcium Total Bilirubin AST ALT Alkaline Phosphatase Total Protein Albumin 04/14/17 04/14/17 04/14/17 05:26 06:20 06:20 WBC 13.3 H D RBC 3.87 L Hgb 10.4 L Hct 33.1 L MCV 85.6 MCH 26.8 MCHC 31.3 L RDW 13.9 Plt Count 119 L MPV 9.4 Neutrophils % 52.3 D Lymphocytes % 36.0 D Monocytes % 10.0 Eosinophils % 1.4 D Basophils % 0.3 Puncture Site ABG pH ABG pCO2 at Pt Temp ABG pO2 at Pt Temp ABG HCO3 ABG O2 Sat (Measured) ABG O2 Content ABG Base Excess Freddie Test Oxygen Flow Rate Sodium 143 Potassium 4.0 Chloride 109 H Carbon Dioxide 27 Anion Gap 7 L BUN 17 Creatinine 1.0 Creat Clearance w eGFR > 60 POC Glucometer 96 Random Glucose 110 H Calcium 7.7 L Total Bilirubin 0.4 AST 11 L D ALT 11 L D Alkaline Phosphatase 66 D Total Protein 6.3 L D Albumin 2.8 L D Problem List - Problems (1) Altered mental state Code(s): R41.82 - ALTERED MENTAL STATUS, UNSPECIFIED (2) Lethargy Code(s): R53.83 - OTHER FATIGUE (3) Leukocytosis Code(s): D72.829 - ELEVATED WHITE BLOOD CELL COUNT, UNSPECIFIED (4) Seizure Code(s): R56.9 - UNSPECIFIED CONVULSIONS IMP ALTERED MENTAL STATUS LIKELY TOXIC METABOLIC ENCEPHALOPATHY R/O INFECTIOUS ?GI ELEVATED RIGHT HEMIDIAPHRAGM WITH ASSOCIATED ATELECTASIS ASHD CHF H/O SEIZURE DISORDER HTN DM DEMENTIA PLAN EMPIRIC ANTIBIOTICS PER ID FOLLOW CULTURES IVF DVT PROPHYLAXIS DR MENJIVAR
--- NOTE | 2017-04-14 14:01 | CONSULT ---
Consult Consult Specialty:: hematology - History of Present Illness History of Present Illness: 77 year old male, with a significant medical history of hyertension, hyperlipidemia, CAD, CHF, and seizures, who presents to the emergency department via ems from [facility] for evaluation of altered mental status as per nursing staff today. As per nurse, the report given to her was that the patient became increasingly confused and vomited some undigested food after dinner. No fever was reported. The nurse states the patient usually communicated verbally, however, was not response to verbal or noxious stimuli. The patient was reportedly given oxygen and became slightly more responsive and ems was called. Hematology consulted for anemia. Pt seen and examined. 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 Cardio/Vascular: Yes: CAD, CHF, HTN, Hyperlipdemia Gastrointestinal: Yes: Constipation Endocrine: Yes: Diabetes Mellitus - Past Surgical History Past Surgical History: Yes: None (pt denies abdominal surgery) - Alcohol/Substance Use Hx Alcohol Use: No - Smoking History Smoking history: Unknown if ever smoked Have you smoked in the past 12 months: No Aproximately how many cigarettes per day: 15 - Social History Usual Living Arrangement: Custodial Home Medications - Allergies Allergies/Adverse Reactions: Allergies Allergy/AdvReac Type Severity Reaction Status Date / Time No Known Drug Allergies Allergy Verified 04/13/17 05:44 - Home Medications Home Medications: Ambulatory Orders Amlodipine Besylate 10 mg PO DAILY 04/13/17 Aspirin 81 mg PO DAILY 04/13/17 Carvedilol [Coreg] 25 mg PO DAILY 04/13/17 Isosorbide Mononitrate [Isosorbide Mononitrate ER] 30 mg PO DAILY 04/13/17 Levetiracetam 500 mg PO DAILY 04/13/17 Linagliptin [Tradjenta] 5 mg PO DAILY 04/13/17 Losartan Potassium 100 mg PO DAILY 04/13/17 Tamsulosin HCl 0.4 mg PO DAILY 04/13/17 Physical Exam Vital Signs: Vital Signs Temperature 98.0 F 04/14/17 09:40 Pulse Rate 78 04/14/17 09:40 Respiratory Rate 18 04/14/17 09:40 Blood Pressure 159/77 04/14/17 09:40 O2 Sat by Pulse Oximetry (%) 96 04/14/17 09:00 Constitutional: Yes: No Distress, Calm Eyes: Yes: Conjunctiva Clear HENT: Yes: Atraumatic, Normocephalic Neck: Yes: Supple Cardiovascular: Yes: Regular Rate and Rhythm Respiratory: Yes: Regular Gastrointestinal: Yes: Abdomen, Obese, Distention Extremities: Yes: WNL Edema: No Labs: CBC, BMP 04/14/17 06:20 04/14/17 06:20 Imaging - Results Cat Scan: Report Reviewed Assessment/Plan Anemia: normochromic normocytic possibility of ACD will order screening labs Baseline Hgb at around 10-11 Noticed Thrombocytopenia: will continue to monitor for w/u Leucocytosis: Sepsis? abx per ID Soft tissue nodule: surg f/u noted. Toxic metabolic encephalopathy: Neuro f/u noted
--- NOTE | 2017-04-14 16:17 | CONSULT ---
Consult - text type - Consultation Consultation Note: NEUROLOGY CONSULTATION is greatly appreciated: This 77 yo male [place] resident with h/o HTN, DM, ASHD, urinary frequency and seizures is maintained on Insulin, sitaglipin, amlodipine, carvedilol, losartan, tamsulosin and levetiracetam (500 mg qd). Yesterday became confused, lost speech and experienced Nausea and vomiting. In ER WBC= 16.7 K. Started on Zosyn, cefriaxone, and metrinidazole. CT of head (reviewed and compared to prior studies dating back to 2011) shows hydrocephalus. Now: Awake, alert and cooperative. Ox [facility], Dec. Right gaze preference. Full chavis. Full EOM's. No facial. Gag OK. Swallows H2O Moves Right arm > left. Minimal left drift. Ankle DF normal. Brisk reflexes. Bilateral Babinskis Withdraws all 4's to pinch and feels vibration thoughout. Gait not tested. 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 R/o Seizure (could explain leukocytosis). SUGGEST: MRI of brain (C-) r/o Right CVA. ? Hydrocephalus. Continue eval and Rx for possible infection. Continue telemetry, cardiac evaluation. Check orthostatic BP's Increase levetiracetam to 500 mg q 12 hrs. PT for eval and Rx of gait. Thank you very much, Navdeep Perales MD
[2017-04-15] MEDS: METRONIDAZOLE 500 MG PREMIXED 500 MG/100 ML MG IVPB SCH ×3 (02:12→18:24)
[2017-04-15] MEDS: DEXTROSE 5%-NORMAL SALINE 1,000 ML IV SCH ×3 (02:57→22:00)
[2017-04-15] MEDS: INSULIN SLIDING SCALE (NOVOLOG) 1 VIAL SQ SCH ×4 (06:45→21:47)
[2017-04-15] MEDS: sitaGLIPtin PHOSPHATE 50 MG TABLET PO SCH (06:48)
[2017-04-15 07:42] LABS: MCH 27.2 pg (25.7-33.7); MCHC 31.8 g/dl (32.0-35.9); MEAN CELL VOLUME 85.5 fl (80-96); MEAN PLT VOLUME 9.7 fl (7.5-11.1); PLATELET COUNT 127 K/MM3 (134-434); RDW 14.3 % (11.9-15.9); WHITE BLOOD COUNT 10.1 K/mm3 (4.0-10.0)
[2017-04-15 08:45] LABS: C-REACTIVE PROTEIN 10.6 MG/DL (0.00-0.3)
--- NOTE | 2017-04-15 09:30 | PN ---
Progress Note (short form) - Note Progress Note: much improved mental status sitting up in bed eating breakfast ct scan reviewed with radiologist- possible RLL infiltrate Vital Signs Period Temp Pulse Resp BP Sys/Foley Pulse Ox Last 24 Hr 98.0 F-99.0 F 72-80 18- 112-159/53-77 98 cor-rrr lungs decreased bs at bases abd- firm, mid midepigastric discomfort to palpation ext no edema CBC, BMP 04/15/17 05:05 04/14/17 06:20 Microbiology 04/13/17 00:20 Blood - Peripheral Venous Blood Culture - Preliminary NO GROWTH OBTAINED AFTER 48 HOURS, INCUBATION TO CONTINUE FOR 3 DAYS. 04/13/17 00:20 Blood - Peripheral Venous Blood Culture - Preliminary NO GROWTH OBTAINED AFTER 48 HOURS, INCUBATION TO CONTINUE FOR 3 DAYS. 04/13/17 00:24 Urine - Urine - Catheterized Urine Culture - Final NO GROWTH OBTAINED a/p RLL infiltrate- continue rocephin/flagyl wbc and mental status improving Problem List - Problems (1) Lethargy Code(s): R53.83 - OTHER FATIGUE (2) Leukocytosis Code(s): D72.829 - ELEVATED WHITE BLOOD CELL COUNT, UNSPECIFIED
--- NOTE | 2017-04-15 09:49 | PN ---
Progress Note, Physician Chief Complaint: AWAKE MORE ALERT EATING BREAKFAST - Current Medication List Current Medications: Active Medications Acetaminophen (Tylenol -) 650 mg PO Q4H PRN PRN Reason: FEVER OR PAIN Last Admin: 04/13/17 14:47 Dose: 650 mg Amlodipine Besylate (Norvasc -) 10 mg PO DAILY [facility] Last Admin: 04/14/17 10:57 Dose: 10 mg Aspirin (Asa -) 81 mg PO DAILY [facility] Last Admin: 04/14/17 10:57 Dose: 81 mg Carvedilol (Coreg -) 25 mg PO DAILY [facility] Last Admin: 04/14/17 10:57 Dose: 25 mg Heparin Sodium (Porcine) (Heparin -) 5,000 unit SQ BID [facility] Last Admin: 04/14/17 22:08 Dose: 5,000 unit Ceftriaxone Sodium 2 gm/ (Dextrose) 100 mls @ 200 mls/hr IVPB DAILY [facility] Last Admin: 04/14/17 11:59 Dose: 200 mls/hr Metronidazole (Flagyl 500mg Premixed Ivpb -) 500 mg in 100 mls @ 100 mls/hr IVPB Q8H-IV [facility] Last Admin: 04/15/17 02:12 Dose: 100 mls/hr Dextrose/Sodium Chloride (D5-Ns -) 1,000 mls @ 80 mls/hr IV ASDIR [facility] Last Admin: 04/15/17 02:57 Dose: 80 mls/hr Insulin Aspart (Novolog Vial Sliding Scale -) 1 vial SQ ACHS ANTHONY PRN Reason: Protocol Last Admin: 04/15/17 06:45 Dose: Not Given Isosorbide Mononitrate (Imdur -) 30 mg PO DAILY [facility] Last Admin: 04/14/17 10:57 Dose: 30 mg Levetiracetam (Keppra -) 500 mg PO BID [facility] Last Admin: 04/14/17 22:08 Dose: 500 mg Losartan Potassium (Cozaar -) 100 mg PO DAILY [facility] Last Admin: 04/14/17 10:57 Dose: 100 mg Sitagliptin Phosphate (Januvia -) 50 mg PO AM [facility] Last Admin: 04/15/17 06:48 Dose: Not Given Tamsulosin HCl (Flomax -) 0.4 mg PO DAILY@0830 [facility] Last Admin: 04/14/17 10:57 Dose: 0.4 mg - Objective Vital Signs: Vital Signs Temperature 98.9 F 04/15/17 02:20 Pulse Rate 72 04/15/17 02:20 Respiratory Rate 20 04/15/17 02:20 Blood Pressure 125/53 04/15/17 02:20 O2 Sat by Pulse Oximetry (%) 98 04/14/17 21:00 Constitutional: Yes: Mild Distress Eyes: Yes: WNL HENT: Yes: WNL Neck: Yes: WNL Cardiovascular: Yes: WNL Respiratory: Yes: On Nasal O2, Rhonchi Gastrointestinal: Yes: WNL Genitourinary: Yes: Incontinence Musculoskeletal: Yes: Muscle Weakness Extremities: Yes: WNL Edema: No Peripheral Pulses WNL: Yes Integumentary: Yes: WNL Wound/Incision: Yes: Clean/Dry Neurological: Yes: Pre-Existing Deficit ...Motor Strength: LLE, RLE Psychiatric: Yes: Other Labs: CBC, BMP 04/15/17 05:05 04/14/17 06:20 INR, PTT INR 1.12 (0.82-1.09) 04/13/17 00:20 Problem List - Problems (1) Pneumonia Code(s): J18.9 - PNEUMONIA, UNSPECIFIED ORGANISM Qualifiers: Pneumonia type: due to unspecified organism Laterality: right Lung location: lower lobe of lung Qualified Code(s): J18.1 - Lobar pneumonia, unspecified organism (2) Abdominal pain Code(s): R10.9 - UNSPECIFIED ABDOMINAL PAIN Qualifiers: Abdominal location: unspecified location Qualified Code(s): R10.9 - Unspecified abdominal pain (3) Abdominal wall mass Code(s): R22.2 - LOCALIZED SWELLING, MASS AND LUMP, TRUNK (4) Altered mental state Code(s): R41.82 - ALTERED MENTAL STATUS, UNSPECIFIED (5) Constipation Code(s): K59.00 - CONSTIPATION, UNSPECIFIED Qualifiers: Constipation type: unspecified constipation type Qualified Code(s): K59.00 - Constipation, unspecified (6) Lethargy Code(s): R53.83 - OTHER FATIGUE (7) Leukocytosis Code(s): D72.829 - ELEVATED WHITE BLOOD CELL COUNT, UNSPECIFIED (8) Seizure Code(s): R56.9 - UNSPECIFIED CONVULSIONS (9) Sepsis Code(s): A41.9 - SEPSIS, UNSPECIFIED ORGANISM Qualifiers: Sepsis type: sepsis due to unspecified organism Qualified Code(s): A41.9 - Sepsis, unspecified organism Assessment/Plan IV ABX NEBS INCENTIVE SPIROMETRY OOB TO CHAIR CHEST PT SX EVAL FOR ABD WALL MASS MONITOR ONLY NO BIOPSY AT THIS TIME NEEDED
[2017-04-15] MEDS: CEFTRIAXONE 2 GM in DEXTROSE 5%-WATER - 100 ML IVPB SCH (10:19)
[2017-04-15] MEDS: amLODIPine BESYLATE 10 MG TABLET (FP) PO SCH (10:20)
[2017-04-15] MEDS: TAMSULOSIN HCL 0.4 MG CAP.ER.24H (FP) PO SCH (10:20)
[2017-04-15] MEDS: ASPIRIN 81 MG CHEWABLE TABLETS PO SCH (10:20)
[2017-04-15] MEDS: HEPARIN NA (PORCINE) 5,000 UNITS/ML 1ML VIAL SQ SCH ×2 (10:20→21:49)
[2017-04-15] MEDS: CARVEDILOL 25 MG TABLET (FP) PO SCH (10:20)
[2017-04-15] MEDS: levETIRAcetam 500 MG TABLET (FP) PO SCH ×2 (10:20→21:49)
[2017-04-15] MEDS: LOSARTAN POTASSIUM 50 MG TABLET (FP) PO SCH (10:20)
[2017-04-15] MEDS: ISOSORBIDE MONONITRATE 30 MG TAB.SR.24H (FP) PO SCH (10:20)
--- NOTE | 2017-04-15 11:33 | PN ---
Progress Note, Physician History of Present Illness: pulmonary alert,feeling better,-resp distress - Current Medication List Current Medications: Active Medications Acetaminophen (Tylenol -) 650 mg PO Q4H PRN PRN Reason: FEVER OR PAIN Last Admin: 04/13/17 14:47 Dose: 650 mg Amlodipine Besylate (Norvasc -) 10 mg PO DAILY [facility] Last Admin: 04/15/17 10:20 Dose: 10 mg Aspirin (Asa -) 81 mg PO DAILY [facility] Last Admin: 04/15/17 10:20 Dose: 81 mg Carvedilol (Coreg -) 25 mg PO DAILY [facility] Last Admin: 04/15/17 10:20 Dose: 25 mg Heparin Sodium (Porcine) (Heparin -) 5,000 unit SQ BID [facility] Last Admin: 04/15/17 10:20 Dose: 5,000 unit Ceftriaxone Sodium 2 gm/ (Dextrose) 100 mls @ 200 mls/hr IVPB DAILY [facility] Last Admin: 04/15/17 10:19 Dose: 200 mls/hr Metronidazole (Flagyl 500mg Premixed Ivpb -) 500 mg in 100 mls @ 100 mls/hr IVPB Q8H-IV [facility] Last Admin: 04/15/17 10:19 Dose: 100 mls/hr Dextrose/Sodium Chloride (D5-Ns -) 1,000 mls @ 80 mls/hr IV ASDIR [facility] Last Admin: 04/15/17 02:57 Dose: 80 mls/hr Insulin Aspart (Novolog Vial Sliding Scale -) 1 vial SQ ACHS [facility] PRN Reason: Protocol Last Admin: 04/15/17 06:45 Dose: Not Given Isosorbide Mononitrate (Imdur -) 30 mg PO DAILY [facility] Last Admin: 04/15/17 10:20 Dose: 30 mg Levetiracetam (Keppra -) 500 mg PO BID [facility] Last Admin: 04/15/17 10:20 Dose: 500 mg Losartan Potassium (Cozaar -) 100 mg PO DAILY [facility] Last Admin: 04/15/17 10:20 Dose: 100 mg Sitagliptin Phosphate (Januvia -) 50 mg PO AM [facility] Last Admin: 04/15/17 06:48 Dose: Not Given Tamsulosin HCl (Flomax -) 0.4 mg PO DAILY@0830 [facility] Last Admin: 04/15/17 10:20 Dose: 0.4 mg - Objective Vital Signs: Vital Signs Temperature 98.4 F 04/15/17 10:00 Pulse Rate 76 04/15/17 10:00 Respiratory Rate 16 04/15/17 10:00 Blood Pressure 132/66 04/15/17 10:00 O2 Sat by Pulse Oximetry (%) 98 04/14/17 21:00 Constitutional: Yes: Well Nourished, Calm Eyes: Yes: WNL HENT: Yes: WNL Neck: Yes: Supple Cardiovascular: Yes: Regular Rate and Rhythm, S1, S2 Respiratory: Yes: Rales (few crackles r base) Gastrointestinal: Yes: Normal Bowel Sounds, Soft Extremities: Yes: WNL Edema: No Labs: CBC, BMP 04/15/17 05:05 04/14/17 06:20 INR, PTT INR 1.12 (0.82-1.09) 04/13/17 00:20 Problem List - Problems (1) Altered mental state Code(s): R41.82 - ALTERED MENTAL STATUS, UNSPECIFIED (2) Lethargy Code(s): R53.83 - OTHER FATIGUE (3) Leukocytosis Code(s): D72.829 - ELEVATED WHITE BLOOD CELL COUNT, UNSPECIFIED (4) Seizure Code(s): R56.9 - UNSPECIFIED CONVULSIONS Assessment/Plan IMP ALTERED MENTAL STATUS LIKELY TOXIC METABOLIC ENCEPHALOPATHY IMPROVING LIKELY PNEUMONIA ? ASPIRATION ASHD CHF H/O SEIZURE DISORDER HTN DM DEMENTIA PLAN ANTIBIOTICS FLUIDS ABG CHEST CT DVT PROPHYLAXIS DR LAMAS Problem List - Problems (1) Altered mental state Code(s): R41.82 - ALTERED MENTAL STATUS, UNSPECIFIED (2) Lethargy Code(s): R53.83 - OTHER FATIGUE (3) Leukocytosis Code(s): D72.829 - ELEVATED WHITE BLOOD CELL COUNT, UNSPECIFIED (4) Seizure Code(s): R56.9 - UNSPECIFIED CONVULSIONS
[2017-04-15 12:57] LABS: ERYTHROCYTE SEDIMENTATION RATE 47 mm/hr (0-20)
[2017-04-15] MEDS: ALBUTEROL SO4 2.5/IPRATROPIUM 0.5 INH SOL 3 ML VIAL.NEB. NEB PRN (15:57)
--- NOTE | 2017-04-15 16:10 | CON.CARD ---
Consult Consult Specialty:: Cardiology Referred by:: Dr. Ramirez Reason for Consultation:: CAD and CHF - History of Present Illness Chief Complaint: Altered mental status History of Present Illness: 77 year old man with a PMHx of hyertension, hyperlipidemia, CAD, CHF, and seizures admitted 04/13/2017 from [facility] for alterened mental status. The patient became increasingly confused and vomited some undigested food after dinner. No fever was reported. The nurse states the patient usually communicated verbally, however, was not response to verbal or noxious stimuli. The patient was reportedly given oxygen. CT chest 04/15/2017 showed RLL pna. The patient was seen by Neurology for altered mental status, surgery for constipation and abdominal pain. Heme for anemia. The patient was comfortable at the time of exam. He denies chest pain, SOB or palpitation. Tele shows sinus rhythm with rare VPCs. ECG 04/14/2017 revealed sinus rhythm, normal axis. Possible old septal ME. Lateral T wave abnormalities. - Past Medical History [employer]: Yes: Dementia, Seizure Cardio/Vascular: Yes: CAD, CHF, HTN, Hyperlipdemia Gastrointestinal: Yes: Constipation Endocrine: Yes: Diabetes Mellitus - Past Surgical History Past Surgical History: Yes: None (pt denies abdominal surgery) - Alcohol/Substance Use Hx Alcohol Use: No - Smoking History Smoking history: Unknown if ever smoked Have you smoked in the past 12 months: No Aproximately how many cigarettes per day: 15 - Social History Usual Living Arrangement: [facility] Home Medications - Allergies Allergies/Adverse Reactions: Allergies Allergy/AdvReac Type Severity Reaction Status Date / Time No Known Drug Allergies Allergy Verified 04/13/17 05:44 - Home Medications Home Medications: Ambulatory Orders Amlodipine Besylate 10 mg PO DAILY 04/13/17 Aspirin 81 mg PO DAILY 04/13/17 Carvedilol [Coreg] 25 mg PO DAILY 04/13/17 Isosorbide Mononitrate [Isosorbide Mononitrate ER] 30 mg PO DAILY 04/13/17 Levetiracetam 500 mg PO DAILY 04/13/17 Linagliptin [Tradjenta] 5 mg PO DAILY 04/13/17 Losartan Potassium 100 mg PO DAILY 04/13/17 Tamsulosin HCl 0.4 mg PO DAILY 04/13/17 Review of Systems - Review of Systems Constitutional: reports: Weakness Eyes: reports: No Symptoms HENT: reports: No Symptoms Neck: reports: No Symptoms Cardiovascular: reports: No Symptoms Respiratory: reports: No Symptoms Gastrointestinal: reports: Abdominal Pain, Constipation Genitourinary: reports: No Symptoms Neurological: reports: Change in LOC, Change in Speech, Confusion Hematology/Lymphatic: reports: Other (anemia) Vital Signs: Vital Signs Temperature 98.8 F 04/15/17 14:00 Pulse Rate 70 04/15/17 14:00 Respiratory Rate 20 04/15/17 14:00 Blood Pressure 113/56 04/15/17 14:00 O2 Sat by Pulse Oximetry (%) 98 04/14/17 21:00 Constitutional: Yes: Well Nourished, No Distress, Calm, Pallor Eyes: Yes: Conjunctiva Clear, EOM Intact HENT: Yes: Atraumatic, Normocephalic Neck: Yes: Supple, Trachea Midline Respiratory: Yes: Regular, Diminished, Rales Gastrointestinal: Yes: Normal Bowel Sounds, Soft Cardiovascular: Yes: Regular Rate and Rhythm JVD: No Carotid Bruit: No Heart Sounds: Yes: S1, S2 Murmur: Yes: Grade 2 Edema: No Peripheral Pulses WNL: Yes - Other Data Labs, Other Data: CBC, BMP 04/15/17 05:05 04/14/17 06:20 INR, PTT INR 1.12 (0.82-1.09) 04/13/17 00:20 ECG 04/14/2017 revealed sinus rhythm, normal axis. Possible old septal ME. Lateral T wave abnormalities. Imaging - Results EKG: Image Reviewed (ECG 04/14/2017 revealed sinus rhythm, normal axis. Possible old septal ME. Lateral T wave abnormalities.) Assessment/Plan 77 year old man with a PMHx of hyertension, hyperlipidemia, CAD, CHF, and seizures admitted 04/13/2017 from [facility] for alterened mental status. CT chest 04/15/2017 showed RLL pna. The patient was seen by Neurology for altered mental status, surgery for constipation and abdominal pain. Heme for anemia. The patient was comfortable at the time of exam. He denies chest pain, SOB or palpitation. Tele shows sinus rhythm with rare VPCs. ECG 04/14/2017 revealed sinus rhythm, normal axis. Possible old septal ME. Lateral T wave abnormalities. 1) CAD: Patient has a history of CAD. But he has no chest pain. ECG shows no evidence of acute ischemia. Continue aspirin, carvedilol and imdur. Add atorvastatin 20 mg daily. conservative cardiac care. 2) CHF: He has no physical signs of fluid overload. No diuretic therapy is needed. Please call us for reconsult as needed.
--- NOTE | 2017-04-15 18:47 | PN ---
Progress Note (short form) - Note Progress Note: Saw pt very briefly - was being taken for MRI. No complaints of pain. Says doing well. On diet. Had enema last night with some yellow loose BM. Vital Signs Period Temp Pulse Resp BP Sys/Foley Pulse Ox Last 24 Hr 98.4 F-98.9 F 70-78 16-20 113-132/53-66 98-98 PE: abdomen soft, mildly distended, nontender CBC 04/15/17 05:05 A/P: abdominal wall nodule of unclear etiology or significance no indication for excision at this time constipation - may need more enema and/or dulcolax to empty colon surgery will sign off - please recall with any questions Problem List - Problems (1) Abdominal wall mass Code(s): R22.2 - LOCALIZED SWELLING, MASS AND LUMP, TRUNK (2) Constipation Code(s): K59.00 - CONSTIPATION, UNSPECIFIED Qualifiers: Constipation type: unspecified constipation type Qualified Code(s): K59.00 - Constipation, unspecified (3) Abdominal pain Code(s): R10.9 - UNSPECIFIED ABDOMINAL PAIN Qualifiers: Abdominal location: unspecified location Qualified Code(s): R10.9 - Unspecified abdominal pain (4) Vomiting alone Code(s): R11.11 - VOMITING WITHOUT NAUSEA Qualifiers: Vomiting type: unspecified Vomiting Intractability: non-intractable Qualified Code(s): R11.11 - Vomiting without nausea
[2017-04-16] MEDS: METRONIDAZOLE 500 MG PREMIXED 500 MG/100 ML MG IVPB SCH ×2 (02:00→11:14)
[2017-04-16] MEDS: INSULIN SLIDING SCALE (NOVOLOG) 1 VIAL SQ SCH ×4 (06:15→22:10)
[2017-04-16] MEDS: sitaGLIPtin PHOSPHATE 50 MG TABLET PO SCH (06:16)
[2017-04-16 08:00] LABS: MCH 27.1 pg (25.7-33.7); MCHC 31.5 g/dl (32.0-35.9); MEAN CELL VOLUME 85.9 fl (80-96); MEAN PLT VOLUME 9.7 fl (7.5-11.1); PLATELET COUNT 136 K/MM3 (134-434); RDW 13.9 % (11.9-15.9); WHITE BLOOD COUNT 7.9 K/mm3 (4.0-10.0)
[2017-04-16] MEDS ORDERED: PT OWN MED DRAWER 7, Y5N ONE (08:51)
--- NOTE | 2017-04-16 10:01 | PN ---
Progress Note, Physician History of Present Illness: PULMONARY ALERT,+ COUGH,+MILD CONGESTION. CHEST CT RLL PNEUMONIA - Current Medication List Current Medications: Active Medications Acetaminophen (Tylenol -) 650 mg PO Q4H PRN PRN Reason: FEVER OR PAIN Last Admin: 04/13/17 14:47 Dose: 650 mg Albuterol/Ipratropium (Duoneb -) 1 amp NEB Q4H PRN PRN Reason: SHORTNESS OF BREATH Last Admin: 04/15/17 15:57 Dose: 1 amp Amlodipine Besylate (Norvasc -) 10 mg PO DAILY [facility] Last Admin: 04/15/17 10:20 Dose: 10 mg Aspirin (Asa -) 81 mg PO DAILY [facility] Last Admin: 04/15/17 10:20 Dose: 81 mg Carvedilol (Coreg -) 25 mg PO DAILY [facility] Last Admin: 04/15/17 10:20 Dose: 25 mg Heparin Sodium (Porcine) (Heparin -) 5,000 unit SQ BID [facility] Last Admin: 04/15/17 21:49 Dose: 5,000 unit Ceftriaxone Sodium 2 gm/ (Dextrose) 100 mls @ 200 mls/hr IVPB DAILY [facility] Last Admin: 04/15/17 10:19 Dose: 200 mls/hr Metronidazole (Flagyl 500mg Premixed Ivpb -) 500 mg in 100 mls @ 100 mls/hr IVPB Q8H-IV [facility] Last Admin: 04/16/17 02:00 Dose: 100 mls/hr Dextrose/Sodium Chloride (D5-Ns -) 1,000 mls @ 80 mls/hr IV ASDIR [facility] Last Admin: 04/15/17 22:00 Dose: 80 mls/hr Insulin Aspart (Novolog Vial Sliding Scale -) 1 vial SQ ACHS [facility] PRN Reason: Protocol Last Admin: 04/16/17 06:15 Dose: Not Given Isosorbide Mononitrate (Imdur -) 30 mg PO DAILY [facility] Last Admin: 04/15/17 10:20 Dose: 30 mg Levetiracetam (Keppra -) 500 mg PO BID [facility] Last Admin: 04/15/17 21:49 Dose: 500 mg Losartan Potassium (Cozaar -) 100 mg PO DAILY [facility] Last Admin: 04/15/17 10:20 Dose: 100 mg Sitagliptin Phosphate (Januvia -) 50 mg PO AM [facility] Last Admin: 04/16/17 06:16 Dose: Not Given Tamsulosin HCl (Flomax -) 0.4 mg PO DAILY@0830 [facility] Last Admin: 04/15/17 10:20 Dose: 0.4 mg - Objective Vital Signs: Vital Signs Temperature 98.2 F 04/16/17 02:28 Pulse Rate 73 04/16/17 06:00 Respiratory Rate 20 04/16/17 06:00 Blood Pressure 103/58 04/16/17 06:00 O2 Sat by Pulse Oximetry (%) 98 04/15/17 20:38 Constitutional: Yes: Well Nourished, Calm Eyes: Yes: WNL HENT: Yes: WNL Neck: Yes: WNL Cardiovascular: Yes: Regular Rate and Rhythm, S1, S2 Respiratory: Yes: Wheezes (SCATTERED RG WHEEZES) Gastrointestinal: Yes: Normal Bowel Sounds, Soft Extremities: Yes: WNL Edema: No Labs: CBC, BMP 04/16/17 06:30 04/14/17 06:20 INR, PTT INR 1.12 (0.82-1.09) 04/13/17 00:20 - ....Imaging Cat Scan: Report Reviewed, Image Reviewed Problem List - Problems (1) Altered mental state Code(s): R41.82 - ALTERED MENTAL STATUS, UNSPECIFIED (2) Lethargy Code(s): R53.83 - OTHER FATIGUE (3) Leukocytosis Code(s): D72.829 - ELEVATED WHITE BLOOD CELL COUNT, UNSPECIFIED (4) Seizure Code(s): R56.9 - UNSPECIFIED CONVULSIONS Assessment/Plan IMP ALTERED MENTAL STATUS LIKELY TOXIC METABOLIC ENCEPHALOPATHY IMPROVING RLL PNEUMONIA ? ASPIRATION ASHD CHF H/O SEIZURE DISORDER HTN DM DEMENTIA PLAN ANTIBIOTICS INHALED BRONCHODILATORS DVT PROPHYLAXIS DR LAMAS Problem List - Problems (1) Altered mental state Code(s): R41.82 - ALTERED MENTAL STATUS, UNSPECIFIED (2) Lethargy Code(s): R53.83 - OTHER FATIGUE (3) Leukocytosis Code(s): D72.829 - ELEVATED WHITE BLOOD CELL COUNT, UNSPECIFIED (4) Seizure Code(s): R56.9 - UNSPECIFIED CONVULSIONS
[2017-04-16] MEDS: ISOSORBIDE MONONITRATE 30 MG TAB.SR.24H (FP) PO SCH (11:13)
[2017-04-16] MEDS: amLODIPine BESYLATE 10 MG TABLET (FP) PO SCH (11:13)
[2017-04-16] MEDS: CARVEDILOL 25 MG TABLET (FP) PO SCH (11:13)
[2017-04-16] MEDS: LOSARTAN POTASSIUM 50 MG TABLET (FP) PO SCH (11:13)
[2017-04-16] MEDS: levETIRAcetam 500 MG TABLET (FP) PO SCH ×2 (11:13→22:10)
[2017-04-16] MEDS: HEPARIN NA (PORCINE) 5,000 UNITS/ML 1ML VIAL SQ SCH ×2 (11:13→22:10)
[2017-04-16] MEDS: ASPIRIN 81 MG CHEWABLE TABLETS PO SCH (11:13)
[2017-04-16] MEDS: TAMSULOSIN HCL 0.4 MG CAP.ER.24H (FP) PO SCH (11:13)
[2017-04-16] MEDS: CEFTRIAXONE 2 GM in DEXTROSE 5%-WATER - 100 ML IVPB SCH (11:14)
[2017-04-16] MEDS: ALBUTEROL SO4 2.5/IPRATROPIUM 0.5 INH SOL 3 ML VIAL.NEB. NEB PRN (12:20)
--- NOTE | 2017-04-16 13:13 | PN ---
Progress Note, Physician Chief Complaint: AWAKE EATING LUNCH + BOWEL MOVEMENT TODAY - Current Medication List Current Medications: Active Medications Acetaminophen (Tylenol -) 650 mg PO Q4H PRN PRN Reason: FEVER OR PAIN Last Admin: 04/13/17 14:47 Dose: 650 mg Albuterol/Ipratropium (Duoneb -) 1 amp NEB Q4H PRN PRN Reason: SHORTNESS OF BREATH Last Admin: 04/15/17 15:57 Dose: 1 amp Amlodipine Besylate (Norvasc -) 10 mg PO DAILY [facility] Last Admin: 04/16/17 11:13 Dose: 10 mg Aspirin (Asa -) 81 mg PO DAILY [facility] Last Admin: 04/16/17 11:13 Dose: 81 mg Carvedilol (Coreg -) 25 mg PO DAILY [facility] Last Admin: 04/16/17 11:13 Dose: 25 mg Heparin Sodium (Porcine) (Heparin -) 5,000 unit SQ BID [facility] Last Admin: 04/16/17 11:13 Dose: 5,000 unit Ceftriaxone Sodium 2 gm/ (Dextrose) 100 mls @ 200 mls/hr IVPB DAILY [facility] Last Admin: 04/16/17 11:14 Dose: 200 mls/hr Metronidazole (Flagyl 500mg Premixed Ivpb -) 500 mg in 100 mls @ 100 mls/hr IVPB Q8H-IV [facility] Last Admin: 04/16/17 11:14 Dose: 100 mls/hr Dextrose/Sodium Chloride (D5-Ns -) 1,000 mls @ 80 mls/hr IV ASDIR [facility] Last Admin: 04/15/17 22:00 Dose: 80 mls/hr Insulin Aspart (Novolog Vial Sliding Scale -) 1 vial SQ ACHS [facility] PRN Reason: Protocol Last Admin: 04/16/17 11:39 Dose: Not Given Isosorbide Mononitrate (Imdur -) 30 mg PO DAILY [facility] Last Admin: 04/16/17 11:13 Dose: 30 mg Levetiracetam (Keppra -) 500 mg PO BID [facility] Last Admin: 04/16/17 11:13 Dose: 500 mg Losartan Potassium (Cozaar -) 100 mg PO DAILY [facility] Last Admin: 04/16/17 11:13 Dose: 100 mg Sitagliptin Phosphate (Januvia -) 50 mg PO AM [facility] Last Admin: 04/16/17 06:16 Dose: Not Given Tamsulosin HCl (Flomax -) 0.4 mg PO DAILY@0830 [facility] Last Admin: 04/16/17 11:13 Dose: 0.4 mg - Objective Vital Signs: Vital Signs Temperature 98.2 F 04/16/17 02:28 Pulse Rate 73 04/16/17 06:00 Respiratory Rate 20 04/16/17 06:00 Blood Pressure 103/58 04/16/17 06:00 O2 Sat by Pulse Oximetry (%) 98 04/15/17 20:38 Constitutional: Yes: No Distress Eyes: Yes: WNL HENT: Yes: WNL, Other Cardiovascular: Yes: WNL Respiratory: Yes: WNL Gastrointestinal: Yes: WNL, Distention Genitourinary: Yes: Incontinence Musculoskeletal: Yes: Muscle Weakness Extremities: Yes: WNL Edema: No Peripheral Pulses WNL: Yes Integumentary: Yes: WNL Wound/Incision: Yes: Clean/Dry Neurological: Yes: Pre-Existing Deficit ...Motor Strength: LLE, RLE Psychiatric: Yes: Other Labs: CBC, BMP 04/16/17 06:30 04/14/17 06:20 INR, PTT INR 1.12 (0.82-1.09) 04/13/17 00:20 Problem List - Problems (1) Pneumonia Code(s): J18.9 - PNEUMONIA, UNSPECIFIED ORGANISM Qualifiers: Pneumonia type: due to unspecified organism Laterality: right Lung location: lower lobe of lung Qualified Code(s): J18.1 - Lobar pneumonia, unspecified organism (2) Abdominal pain Code(s): R10.9 - UNSPECIFIED ABDOMINAL PAIN Qualifiers: Abdominal location: unspecified location Qualified Code(s): R10.9 - Unspecified abdominal pain (3) Abdominal wall mass Code(s): R22.2 - LOCALIZED SWELLING, MASS AND LUMP, TRUNK (4) Altered mental state Code(s): R41.82 - ALTERED MENTAL STATUS, UNSPECIFIED (5) Constipation Code(s): K59.00 - CONSTIPATION, UNSPECIFIED Qualifiers: Constipation type: unspecified constipation type Qualified Code(s): K59.00 - Constipation, unspecified (6) Lethargy Code(s): R53.83 - OTHER FATIGUE (7) Leukocytosis Code(s): D72.829 - ELEVATED WHITE BLOOD CELL COUNT, UNSPECIFIED (8) Seizure Code(s): R56.9 - UNSPECIFIED CONVULSIONS (9) Sepsis Code(s): A41.9 - SEPSIS, UNSPECIFIED ORGANISM Qualifiers: Sepsis type: sepsis due to unspecified organism Qualified Code(s): A41.9 - Sepsis, unspecified organism Assessment/Plan MRI BRAIN NO ACUTE CHANGES NEURO F/U IV ABX ABD STILL DISTENDED, + BM TODAY APPETITE IS GOOD OOB TO CHAIR
[2017-04-16] MEDS: DEXTROSE 5%-NORMAL SALINE 1,000 ML IV SCH (22:09)
[2017-04-17] MEDS: DEXTROSE 5%-NORMAL SALINE 1,000 ML IV SCH ×2 (03:22→19:00)
[2017-04-17] MEDS: INSULIN SLIDING SCALE (NOVOLOG) 1 VIAL SQ SCH ×4 (06:31→21:44)
[2017-04-17] MEDS: sitaGLIPtin PHOSPHATE 50 MG TABLET PO SCH (06:31)
[2017-04-17 06:36] LABS: SERUM IRON 136 ug/dL (38-169); TOTAL IRON BINDING CAPACITY 169 ug/dL (250-450); UIBC 33 ug/dL (111-343)
[2017-04-17 06:36] LABS: HEMATOCRIT 33.2 % (37.5-51.0)
[2017-04-17 08:02] LABS: MCHC 31.5 g/dl (32.0-35.9); MEAN CELL VOLUME 85.8 fl (80-96); MEAN PLT VOLUME 9.9 fl (7.5-11.1); PLATELET COUNT 142 K/MM3 (134-434); RDW 14.1 % (11.9-15.9); WHITE BLOOD COUNT 8.6 K/mm3 (4.0-10.0)
[2017-04-17 08:37] LABS: ANION GAP 8 (8-16); CALCIUM 8.2 mg/dL (8.5-10.1); CO2 28 mmol/L (21-32); CREATININE 0.8 mg/dL (0.7-1.3); GLUCOSE,RANDOM 99 mg/dL (74-106)
--- NOTE | 2017-04-17 09:43 | PN ---
Progress Note, Physician History of Present Illness: PULMONARY AWAKE,-RESP DISTRESS - Current Medication List Current Medications: Active Medications Acetaminophen (Tylenol -) 650 mg PO Q4H PRN PRN Reason: FEVER OR PAIN Last Admin: 04/13/17 14:47 Dose: 650 mg Albuterol/Ipratropium (Duoneb -) 1 amp NEB Q4H PRN PRN Reason: SHORTNESS OF BREATH Last Admin: 04/16/17 12:20 Dose: 1 amp Amlodipine Besylate (Norvasc -) 10 mg PO DAILY [facility] Last Admin: 04/16/17 11:13 Dose: 10 mg Aspirin (Asa -) 81 mg PO DAILY [facility] Last Admin: 04/16/17 11:13 Dose: 81 mg Carvedilol (Coreg -) 25 mg PO DAILY [facility] Last Admin: 04/16/17 11:13 Dose: 25 mg Heparin Sodium (Porcine) (Heparin -) 5,000 unit SQ BID [facility] Last Admin: 04/16/17 22:10 Dose: 5,000 unit Dextrose/Sodium Chloride (D5-Ns -) 1,000 mls @ 80 mls/hr IV ASDIR [facility] Last Admin: 04/17/17 03:22 Dose: 80 mls/hr Insulin Aspart (Novolog Vial Sliding Scale -) 1 vial SQ ACHS [facility] PRN Reason: Protocol Last Admin: 04/17/17 06:31 Dose: Not Given Isosorbide Mononitrate (Imdur -) 30 mg PO DAILY [facility] Last Admin: 04/16/17 11:13 Dose: 30 mg Levetiracetam (Keppra -) 500 mg PO BID [facility] Last Admin: 04/16/17 22:10 Dose: 500 mg Losartan Potassium (Cozaar -) 100 mg PO DAILY [facility] Last Admin: 04/16/17 11:13 Dose: 100 mg Sitagliptin Phosphate (Januvia -) 50 mg PO AM [facility] Last Admin: 04/17/17 06:31 Dose: 50 mg Tamsulosin HCl (Flomax -) 0.4 mg PO DAILY@0830 [facility] Last Admin: 04/16/17 11:13 Dose: 0.4 mg - Objective Vital Signs: Vital Signs Temperature 98.4 F 04/17/17 06:00 Pulse Rate 90 04/17/17 06:00 Respiratory Rate 20 04/17/17 06:00 Blood Pressure 145/72 04/17/17 06:00 O2 Sat by Pulse Oximetry (%) 98 04/16/17 21:00 Constitutional: Yes: Well Nourished, Calm Eyes: Yes: WNL HENT: Yes: WNL Cardiovascular: Yes: Regular Rate and Rhythm, S1, S2 Respiratory: Yes: Rhonchi (SCATTERED RHONCHI) Gastrointestinal: Yes: Normal Bowel Sounds, Soft Extremities: Yes: WNL Edema: No Labs: CBC, BMP 04/17/17 06:38 04/17/17 06:38 INR, PTT INR 1.12 (0.82-1.09) 04/13/17 00:20 Problem List - Problems (1) Altered mental state Code(s): R41.82 - ALTERED MENTAL STATUS, UNSPECIFIED (2) Lethargy Code(s): R53.83 - OTHER FATIGUE (3) Leukocytosis Code(s): D72.829 - ELEVATED WHITE BLOOD CELL COUNT, UNSPECIFIED (4) Seizure Code(s): R56.9 - UNSPECIFIED CONVULSIONS Assessment/Plan IMP ALTERED MENTAL STATUS LIKELY TOXIC METABOLIC ENCEPHALOPATHY IMPROVING RLL PNEUMONIA ? ASPIRATION ASHD CHF H/O SEIZURE DISORDER HTN DM DEMENTIA PLAN CONTINUE ANTIBIOTICS INHALED BRONCHODILATORS DVT PROPHYLAXIS DR LAMAS Problem List - Problems (1) Altered mental state Code(s): R41.82 - ALTERED MENTAL STATUS, UNSPECIFIED (2) Lethargy Code(s): R53.83 - OTHER FATIGUE (3) Leukocytosis Code(s): D72.829 - ELEVATED WHITE BLOOD CELL COUNT, UNSPECIFIED (4) Seizure Code(s): R56.9 - UNSPECIFIED CONVULSIONS
[2017-04-17] MEDS: amLODIPine BESYLATE 10 MG TABLET (FP) PO SCH (09:44)
[2017-04-17] MEDS: LOSARTAN POTASSIUM 50 MG TABLET (FP) PO SCH (09:44)
[2017-04-17] MEDS: TAMSULOSIN HCL 0.4 MG CAP.ER.24H (FP) PO SCH (09:44)
[2017-04-17] MEDS: levETIRAcetam 500 MG TABLET (FP) PO SCH ×2 (09:44→21:40)
[2017-04-17] MEDS: ASPIRIN 81 MG CHEWABLE TABLETS PO SCH (09:44)
[2017-04-17] MEDS: CARVEDILOL 25 MG TABLET (FP) PO SCH (09:44)
[2017-04-17] MEDS: ISOSORBIDE MONONITRATE 30 MG TAB.SR.24H (FP) PO SCH (09:45)
[2017-04-17] MEDS: HEPARIN NA (PORCINE) 5,000 UNITS/ML 1ML VIAL SQ SCH ×2 (09:45→21:40)
[2017-04-17] MEDS: CEFTRIAXONE 1 G/50 ML PREMIX 50 ML IVPB SCH (12:58)
--- NOTE | 2017-04-17 15:51 | PN ---
Progress Note, Physician Chief Complaint: ASLEEP COMFORTABLE - Current Medication List Current Medications: Active Medications Acetaminophen (Tylenol -) 650 mg PO Q4H PRN PRN Reason: FEVER OR PAIN Last Admin: 04/13/17 14:47 Dose: 650 mg Albuterol/Ipratropium (Duoneb -) 1 amp NEB Q4H PRN PRN Reason: SHORTNESS OF BREATH Last Admin: 04/16/17 12:20 Dose: 1 amp Amlodipine Besylate (Norvasc -) 10 mg PO DAILY [facility] Last Admin: 04/17/17 09:44 Dose: 10 mg Aspirin (Asa -) 81 mg PO DAILY [facility] Last Admin: 04/17/17 09:44 Dose: 81 mg Carvedilol (Coreg -) 25 mg PO DAILY [facility] Last Admin: 04/17/17 09:44 Dose: 25 mg Heparin Sodium (Porcine) (Heparin -) 5,000 unit SQ BID [facility] Last Admin: 04/17/17 09:45 Dose: 5,000 unit Dextrose/Sodium Chloride (D5-Ns -) 1,000 mls @ 80 mls/hr IV ASDIR [facility] Last Admin: 04/17/17 03:22 Dose: 80 mls/hr CEFTRIAXONE 1 G/50 ML PREMIX (Ceftriaxone 1 Gm-D5w Bag) 50 mls @ 100 mls/hr IVPB DAILY [facility] Stop: 04/24/17 09:59 Last Admin: 04/17/17 12:58 Dose: 100 mls/hr Insulin Aspart (Novolog Vial Sliding Scale -) 1 vial SQ ACHS [facility] PRN Reason: Protocol Last Admin: 04/17/17 12:28 Dose: Not Given Isosorbide Mononitrate (Imdur -) 30 mg PO DAILY [facility] Last Admin: 04/17/17 09:45 Dose: 30 mg Levetiracetam (Keppra -) 500 mg PO BID [facility] Last Admin: 04/17/17 09:44 Dose: 500 mg Losartan Potassium (Cozaar -) 100 mg PO DAILY [facility] Last Admin: 04/17/17 09:44 Dose: 100 mg Sitagliptin Phosphate (Januvia -) 50 mg PO AM [facility] Last Admin: 04/17/17 06:31 Dose: 50 mg Tamsulosin HCl (Flomax -) 0.4 mg PO DAILY@0830 [facility] Last Admin: 04/17/17 09:44 Dose: 0.4 mg - Objective Vital Signs: Vital Signs Temperature 97.8 F 04/17/17 14:20 Pulse Rate 94 H 04/17/17 14:20 Respiratory Rate 18 04/17/17 14:20 Blood Pressure 122/67 04/17/17 14:20 O2 Sat by Pulse Oximetry (%) 98 04/17/17 09:00 Constitutional: Yes: Mild Distress Eyes: Yes: WNL HENT: Yes: WNL Neck: Yes: WNL Cardiovascular: Yes: WNL Respiratory: Yes: On Nasal O2, Rhonchi Gastrointestinal: Yes: WNL Genitourinary: Yes: WNL Musculoskeletal: Yes: WNL Extremities: Yes: WNL Edema: No Peripheral Pulses WNL: Yes Integumentary: Yes: WNL Wound/Incision: Yes: Clean/Dry Neurological: Yes: Pre-Existing Deficit ...Motor Strength: LLE, RLE Psychiatric: Yes: Other Labs: CBC, BMP 04/17/17 06:38 04/17/17 06:38 INR, PTT INR 1.12 (0.82-1.09) 04/13/17 00:20 Problem List - Problems (1) Pneumonia Code(s): J18.9 - PNEUMONIA, UNSPECIFIED ORGANISM Qualifiers: Pneumonia type: due to unspecified organism Laterality: right Lung location: lower lobe of lung Qualified Code(s): J18.1 - Lobar pneumonia, unspecified organism (2) Abdominal pain Code(s): R10.9 - UNSPECIFIED ABDOMINAL PAIN Qualifiers: Abdominal location: unspecified location Qualified Code(s): R10.9 - Unspecified abdominal pain (3) Abdominal wall mass Code(s): R22.2 - LOCALIZED SWELLING, MASS AND LUMP, TRUNK (4) Altered mental state Code(s): R41.82 - ALTERED MENTAL STATUS, UNSPECIFIED (5) Constipation Code(s): K59.00 - CONSTIPATION, UNSPECIFIED Qualifiers: Constipation type: unspecified constipation type Qualified Code(s): K59.00 - Constipation, unspecified (6) Lethargy Code(s): R53.83 - OTHER FATIGUE (7) Leukocytosis Code(s): D72.829 - ELEVATED WHITE BLOOD CELL COUNT, UNSPECIFIED (8) Seizure Code(s): R56.9 - UNSPECIFIED CONVULSIONS (9) Sepsis Code(s): A41.9 - SEPSIS, UNSPECIFIED ORGANISM Qualifiers: Sepsis type: sepsis due to unspecified organism Qualified Code(s): A41.9 - Sepsis, unspecified organism Assessment/Plan MRI BRAIN NO ACUTE CHANGES NEURO F/U IV ABX ABD STILL DISTENDED, + BM TODAY APPETITE IS GOOD OOB TO CHAIR
[2017-04-17] MEDS: ALBUTEROL SO4 2.5/IPRATROPIUM 0.5 INH SOL 3 ML VIAL.NEB. NEB PRN (17:21)
[2017-04-17] MEDS: ACETAMINOPHEN 325 MG TABLET (FP) PO PRN (19:40)
[2017-04-18] MEDS: INSULIN SLIDING SCALE (NOVOLOG) 1 VIAL SQ SCH ×4 (06:33→21:55)
[2017-04-18] MEDS: sitaGLIPtin PHOSPHATE 50 MG TABLET PO SCH (06:33)
--- NOTE | 2017-04-18 10:00 | PN ---
Progress Note, Physician History of Present Illness: PULMONARY ALERT,-RESP DISTRESS. - Current Medication List Current Medications: Active Medications Acetaminophen (Tylenol -) 650 mg PO Q4H PRN PRN Reason: FEVER OR PAIN Last Admin: 04/17/17 19:40 Dose: 650 mg Albuterol/Ipratropium (Duoneb -) 1 amp NEB Q4H PRN PRN Reason: SHORTNESS OF BREATH Last Admin: 04/16/17 12:20 Dose: 1 amp Amlodipine Besylate (Norvasc -) 10 mg PO DAILY [facility] Last Admin: 04/17/17 09:44 Dose: 10 mg Aspirin (Asa -) 81 mg PO DAILY [facility] Last Admin: 04/17/17 09:44 Dose: 81 mg Carvedilol (Coreg -) 25 mg PO DAILY [facility] Last Admin: 04/17/17 09:44 Dose: 25 mg Heparin Sodium (Porcine) (Heparin -) 5,000 unit SQ BID [facility] Last Admin: 04/17/17 21:40 Dose: 5,000 unit Dextrose/Sodium Chloride (D5-Ns -) 1,000 mls @ 80 mls/hr IV ASDIR [facility] Last Admin: 04/17/17 03:22 Dose: 80 mls/hr CEFTRIAXONE 1 G/50 ML PREMIX (Ceftriaxone 1 Gm-D5w Bag) 50 mls @ 100 mls/hr IVPB DAILY [facility] Stop: 04/24/17 09:59 Last Admin: 04/17/17 12:58 Dose: 100 mls/hr Insulin Aspart (Novolog Vial Sliding Scale -) 1 vial SQ ACHS [facility] PRN Reason: Protocol Last Admin: 04/18/17 06:33 Dose: Not Given Isosorbide Mononitrate (Imdur -) 30 mg PO DAILY [facility] Last Admin: 04/17/17 09:45 Dose: 30 mg Levetiracetam (Keppra -) 500 mg PO BID [facility] Last Admin: 04/17/17 21:40 Dose: 500 mg Losartan Potassium (Cozaar -) 100 mg PO DAILY [facility] Last Admin: 04/17/17 09:44 Dose: 100 mg Sitagliptin Phosphate (Januvia -) 50 mg PO AM [facility] Last Admin: 04/18/17 06:33 Dose: 50 mg Tamsulosin HCl (Flomax -) 0.4 mg PO DAILY@0830 [facility] Last Admin: 04/17/17 09:44 Dose: 0.4 mg - Objective Vital Signs: Vital Signs Temperature 97.9 F 04/18/17 06:00 Pulse Rate 83 04/18/17 06:00 Respiratory Rate 20 04/18/17 06:00 Blood Pressure 142/71 04/18/17 06:00 O2 Sat by Pulse Oximetry (%) 98 04/17/17 21:00 Constitutional: Yes: Well Nourished, Calm Eyes: Yes: WNL HENT: Yes: WNL Cardiovascular: Yes: Regular Rate and Rhythm, S1, S2 Respiratory: Yes: Rales (FEW BIBASILAR CRACKLES) Gastrointestinal: Yes: Normal Bowel Sounds, Soft Extremities: Yes: WNL Edema: No Labs: CBC, BMP 04/17/17 06:38 04/17/17 06:38 INR, PTT INR 1.12 (0.82-1.09) 04/13/17 00:20 Problem List - Problems (1) Altered mental state Code(s): R41.82 - ALTERED MENTAL STATUS, UNSPECIFIED (2) Lethargy Code(s): R53.83 - OTHER FATIGUE (3) Leukocytosis Code(s): D72.829 - ELEVATED WHITE BLOOD CELL COUNT, UNSPECIFIED (4) Seizure Code(s): R56.9 - UNSPECIFIED CONVULSIONS Assessment/Plan IMP ALTERED MENTAL STATUS LIKELY TOXIC METABOLIC ENCEPHALOPATHY IMPROVED RLL PNEUMONIA ? ASPIRATION ASHD CHF H/O SEIZURE DISORDER HTN DM DEMENTIA PLAN CONTINUE ANTIBIOTICS PER ID INHALED BRONCHODILATORS DVT PROPHYLAXIS DR LAMAS Problem List - Problems (1) Altered mental state Code(s): R41.82 - ALTERED MENTAL STATUS, UNSPECIFIED (2) Lethargy Code(s): R53.83 - OTHER FATIGUE (3) Leukocytosis Code(s): D72.829 - ELEVATED WHITE BLOOD CELL COUNT, UNSPECIFIED (4) Seizure Code(s): R56.9 - UNSPECIFIED CONVULSIONS
[2017-04-18] MEDS: CEFTRIAXONE 1 G/50 ML PREMIX 50 ML IVPB SCH (10:08)
[2017-04-18] MEDS: HEPARIN NA (PORCINE) 5,000 UNITS/ML 1ML VIAL SQ SCH ×2 (10:08→21:57)
[2017-04-18] MEDS: TAMSULOSIN HCL 0.4 MG CAP.ER.24H (FP) PO SCH (10:09)
[2017-04-18] MEDS: levETIRAcetam 500 MG TABLET (FP) PO SCH ×2 (10:09→21:57)
[2017-04-18] MEDS: ISOSORBIDE MONONITRATE 30 MG TAB.SR.24H (FP) PO SCH (10:09)
[2017-04-18] MEDS: amLODIPine BESYLATE 10 MG TABLET (FP) PO SCH (10:09)
[2017-04-18] MEDS: LOSARTAN POTASSIUM 50 MG TABLET (FP) PO SCH (10:09)
[2017-04-18] MEDS: CARVEDILOL 25 MG TABLET (FP) PO SCH (10:09)
[2017-04-18] MEDS: ASPIRIN 81 MG CHEWABLE TABLETS PO SCH (10:09)
--- NOTE | 2017-04-18 18:04 | PN ---
Progress Note, Physician Chief Complaint: AWAKE ALERT EATING DINNER - Current Medication List Current Medications: Active Medications Acetaminophen (Tylenol -) 650 mg PO Q4H PRN PRN Reason: FEVER OR PAIN Last Admin: 04/17/17 19:40 Dose: 650 mg Albuterol/Ipratropium (Duoneb -) 1 amp NEB Q4H PRN PRN Reason: SHORTNESS OF BREATH Last Admin: 04/16/17 12:20 Dose: 1 amp Amlodipine Besylate (Norvasc -) 10 mg PO DAILY [facility] Last Admin: 04/18/17 10:09 Dose: 10 mg Aspirin (Asa -) 81 mg PO DAILY [facility] Last Admin: 04/18/17 10:09 Dose: 81 mg Carvedilol (Coreg -) 25 mg PO DAILY [facility] Last Admin: 04/18/17 10:09 Dose: 25 mg Heparin Sodium (Porcine) (Heparin -) 5,000 unit SQ BID [facility] Last Admin: 04/18/17 10:08 Dose: 5,000 unit Dextrose/Sodium Chloride (D5-Ns -) 1,000 mls @ 80 mls/hr IV ASDIR [facility] Last Admin: 04/17/17 03:22 Dose: 80 mls/hr CEFTRIAXONE 1 G/50 ML PREMIX (Ceftriaxone 1 Gm-D5w Bag) 50 mls @ 100 mls/hr IVPB DAILY [facility] Stop: 04/24/17 09:59 Last Admin: 04/18/17 10:08 Dose: 100 mls/hr Insulin Aspart (Novolog Vial Sliding Scale -) 1 vial SQ ACHS [facility] PRN Reason: Protocol Last Admin: 04/18/17 17:23 Dose: Not Given Isosorbide Mononitrate (Imdur -) 30 mg PO DAILY [facility] Last Admin: 04/18/17 10:09 Dose: 30 mg Levetiracetam (Keppra -) 500 mg PO BID [facility] Last Admin: 04/18/17 10:09 Dose: 500 mg Losartan Potassium (Cozaar -) 100 mg PO DAILY [facility] Last Admin: 04/18/17 10:09 Dose: 100 mg Sitagliptin Phosphate (Januvia -) 50 mg PO AM [facility] Last Admin: 04/18/17 06:33 Dose: 50 mg Tamsulosin HCl (Flomax -) 0.4 mg PO DAILY@0830 [facility] Last Admin: 04/18/17 10:09 Dose: 0.4 mg - Objective Vital Signs: Vital Signs Temperature 98.3 F 04/18/17 14:00 Pulse Rate 85 04/18/17 14:00 Respiratory Rate 20 04/18/17 14:00 Blood Pressure 114/59 04/18/17 14:00 O2 Sat by Pulse Oximetry (%) 98 04/18/17 09:00 Constitutional: Yes: Mild Distress Eyes: Yes: WNL HENT: Yes: WNL Neck: Yes: WNL Cardiovascular: Yes: WNL Respiratory: Yes: On Nasal O2, Poor Air Entry Gastrointestinal: Yes: WNL Genitourinary: Yes: WNL Musculoskeletal: Yes: Muscle Weakness Extremities: Yes: WNL Edema: No Peripheral Pulses WNL: Yes Integumentary: Yes: WNL Wound/Incision: Yes: Clean/Dry Neurological: Yes: WNL ...Motor Strength: WNL Psychiatric: Yes: WNL Labs: CBC, BMP 04/17/17 06:38 04/17/17 06:38 INR, PTT INR 1.12 (0.82-1.09) 04/13/17 00:20 Problem List - Problems (1) Pneumonia Code(s): J18.9 - PNEUMONIA, UNSPECIFIED ORGANISM Qualifiers: Pneumonia type: due to unspecified organism Laterality: right Lung location: lower lobe of lung Qualified Code(s): J18.1 - Lobar pneumonia, unspecified organism (2) Abdominal pain Code(s): R10.9 - UNSPECIFIED ABDOMINAL PAIN Qualifiers: Abdominal location: unspecified location Qualified Code(s): R10.9 - Unspecified abdominal pain (3) Abdominal wall mass Code(s): R22.2 - LOCALIZED SWELLING, MASS AND LUMP, TRUNK (4) Altered mental state Code(s): R41.82 - ALTERED MENTAL STATUS, UNSPECIFIED (5) Constipation Code(s): K59.00 - CONSTIPATION, UNSPECIFIED Qualifiers: Constipation type: unspecified constipation type Qualified Code(s): K59.00 - Constipation, unspecified (6) Lethargy Code(s): R53.83 - OTHER FATIGUE (7) Leukocytosis Code(s): D72.829 - ELEVATED WHITE BLOOD CELL COUNT, UNSPECIFIED (8) Seizure Code(s): R56.9 - UNSPECIFIED CONVULSIONS (9) Sepsis Code(s): A41.9 - SEPSIS, UNSPECIFIED ORGANISM Qualifiers: Sepsis type: sepsis due to unspecified organism Qualified Code(s): A41.9 - Sepsis, unspecified organism Assessment/Plan MRI BRAIN NO ACUTE CHANGES NEURO F/U IV ABX ABD STILL DISTENDED, + BM TODAY APPETITE IS GOOD OOB TO CHAIR
[2017-04-19] MEDS: INSULIN SLIDING SCALE (NOVOLOG) 1 VIAL SQ SCH ×4 (06:18→23:25)
[2017-04-19] MEDS: sitaGLIPtin PHOSPHATE 50 MG TABLET PO SCH (06:21)
[2017-04-19 07:01] LABS: MCH 27.6 pg (25.7-33.7); MCHC 32.3 g/dl (32.0-35.9); MEAN CELL VOLUME 85.6 fl (80-96); PLATELET COUNT 181 K/MM3 (134-434); WHITE BLOOD COUNT 7.6 K/mm3 (4.0-10.0)
[2017-04-19 07:36] LABS: ANION GAP 7 (8-16); CALCIUM 8.3 mg/dL (8.5-10.1); CO2 31 mmol/L (21-32); CREATININE 0.8 mg/dL (0.7-1.3); GLUCOSE,RANDOM 87 mg/dL (74-106)
[2017-04-19] MEDS: HEPARIN NA (PORCINE) 5,000 UNITS/ML 1ML VIAL SQ SCH ×2 (09:57→22:06)
[2017-04-19] MEDS: CARVEDILOL 25 MG TABLET (FP) PO SCH (10:01)
[2017-04-19] MEDS: LOSARTAN POTASSIUM 50 MG TABLET (FP) PO SCH (10:01)
[2017-04-19] MEDS: levETIRAcetam 500 MG TABLET (FP) PO SCH ×2 (10:02→22:06)
[2017-04-19] MEDS: ASPIRIN 81 MG CHEWABLE TABLETS PO SCH (10:02)
[2017-04-19] MEDS: amLODIPine BESYLATE 10 MG TABLET (FP) PO SCH (10:02)
[2017-04-19] MEDS: ISOSORBIDE MONONITRATE 30 MG TAB.SR.24H (FP) PO SCH (10:02)
[2017-04-19] MEDS: CEFTRIAXONE 1 G/50 ML PREMIX 50 ML IVPB SCH (10:02)
[2017-04-19] MEDS: TAMSULOSIN HCL 0.4 MG CAP.ER.24H (FP) PO SCH (10:02)
--- NOTE | 2017-04-19 10:58 | PN ---
Progress Note, Physician History of Present Illness: PULMONARY ALERT,NAD,-SOB,-COUGH,-CONGESTION - Current Medication List Current Medications: Active Medications Acetaminophen (Tylenol -) 650 mg PO Q4H PRN PRN Reason: FEVER OR PAIN Last Admin: 04/17/17 19:40 Dose: 650 mg Albuterol/Ipratropium (Duoneb -) 1 amp NEB Q4H PRN PRN Reason: SHORTNESS OF BREATH Last Admin: 04/16/17 12:20 Dose: 1 amp Amlodipine Besylate (Norvasc -) 10 mg PO DAILY [facility] Last Admin: 04/19/17 10:02 Dose: 10 mg Aspirin (Asa -) 81 mg PO DAILY [facility] Last Admin: 04/19/17 10:02 Dose: 81 mg Carvedilol (Coreg -) 25 mg PO DAILY [facility] Last Admin: 04/19/17 10:01 Dose: 25 mg Heparin Sodium (Porcine) (Heparin -) 5,000 unit SQ BID [facility] Last Admin: 04/19/17 09:57 Dose: 5,000 unit Dextrose/Sodium Chloride (D5-Ns -) 1,000 mls @ 80 mls/hr IV ASDIR [facility] Last Admin: 04/17/17 19:00 Dose: 80 mls/hr CEFTRIAXONE 1 G/50 ML PREMIX (Ceftriaxone 1 Gm-D5w Bag) 50 mls @ 100 mls/hr IVPB DAILY [facility] Stop: 04/24/17 09:59 Last Admin: 04/19/17 10:02 Dose: 100 mls/hr Insulin Aspart (Novolog Vial Sliding Scale -) 1 vial SQ ACHS [facility] PRN Reason: Protocol Last Admin: 04/19/17 06:18 Dose: Not Given Isosorbide Mononitrate (Imdur -) 30 mg PO DAILY [facility] Last Admin: 04/19/17 10:02 Dose: 30 mg Levetiracetam (Keppra -) 500 mg PO BID [facility] Last Admin: 04/19/17 10:02 Dose: 500 mg Losartan Potassium (Cozaar -) 100 mg PO DAILY [facility] Last Admin: 04/19/17 10:01 Dose: 100 mg Sitagliptin Phosphate (Januvia -) 50 mg PO AM [facility] Last Admin: 04/19/17 06:21 Dose: 50 mg Tamsulosin HCl (Flomax -) 0.4 mg PO DAILY@0830 [facility] Last Admin: 12/26/17 10:02 Dose: 0.4 mg - Objective Vital Signs: Vital Signs Temperature 98.6 F 04/19/17 02:00 Pulse Rate 86 04/19/17 02:00 Respiratory Rate 20 04/19/17 02:00 Blood Pressure 133/65 04/19/17 02:00 O2 Sat by Pulse Oximetry (%) 98 04/18/17 20:16 Constitutional: Yes: Well Nourished, Calm Eyes: Yes: WNL HENT: Yes: WNL Neck: Yes: WNL Cardiovascular: Yes: Regular Rate and Rhythm, S1, S2 Respiratory: Yes: Rales (FEW CRACKLES R BASE) Gastrointestinal: Yes: Normal Bowel Sounds, Soft Extremities: Yes: WNL Edema: No Labs: CBC, BMP 04/19/17 06:40 04/19/17 06:40 INR, PTT INR 1.12 (0.82-1.09) 04/13/17 00:20 Problem List - Problems (1) Altered mental state Code(s): R41.82 - ALTERED MENTAL STATUS, UNSPECIFIED (2) Lethargy Code(s): R53.83 - OTHER FATIGUE (3) Leukocytosis Code(s): D72.829 - ELEVATED WHITE BLOOD CELL COUNT, UNSPECIFIED (4) Seizure Code(s): R56.9 - UNSPECIFIED CONVULSIONS Assessment/Plan IMP ALTERED MENTAL STATUS LIKELY TOXIC METABOLIC ENCEPHALOPATHY IMPROVED RLL PNEUMONIA ASHD CHF H/O SEIZURE DISORDER HTN DM DEMENTIA PLAN CONTINUE ANTIBIOTICS PER ID INHALED BRONCHODILATORS DVT PROPHYLAXIS DR LAMAS Problem List - Problems (1) Altered mental state Code(s): R41.82 - ALTERED MENTAL STATUS, UNSPECIFIED (2) Lethargy Code(s): R53.83 - OTHER FATIGUE (3) Leukocytosis Code(s): D72.829 - ELEVATED WHITE BLOOD CELL COUNT, UNSPECIFIED (4) Seizure Code(s): R56.9 - UNSPECIFIED CONVULSIONS
--- NOTE | 2017-04-19 15:39 | PN ---
Progress Note, Physician Chief Complaint: awake improving nad - Current Medication List Current Medications: Active Medications Acetaminophen (Tylenol -) 650 mg PO Q4H PRN PRN Reason: FEVER OR PAIN Last Admin: 04/17/17 19:40 Dose: 650 mg Albuterol/Ipratropium (Duoneb -) 1 amp NEB Q4H PRN PRN Reason: SHORTNESS OF BREATH Last Admin: 04/16/17 12:20 Dose: 1 amp Amlodipine Besylate (Norvasc -) 10 mg PO DAILY [facility] Last Admin: 04/19/17 10:02 Dose: 10 mg Aspirin (Asa -) 81 mg PO DAILY [facility] Last Admin: 04/19/17 10:02 Dose: 81 mg Carvedilol (Coreg -) 25 mg PO DAILY [facility] Last Admin: 04/19/17 10:01 Dose: 25 mg Heparin Sodium (Porcine) (Heparin -) 5,000 unit SQ BID [facility] Last Admin: 04/19/17 09:57 Dose: 5,000 unit Dextrose/Sodium Chloride (D5-Ns -) 1,000 mls @ 80 mls/hr IV ASDIR [facility] Last Admin: 04/17/17 19:00 Dose: 80 mls/hr CEFTRIAXONE 1 G/50 ML PREMIX (Ceftriaxone 1 Gm-D5w Bag) 50 mls @ 100 mls/hr IVPB DAILY [facility] Stop: 04/24/17 09:59 Last Admin: 04/19/17 10:02 Dose: 100 mls/hr Insulin Aspart (Novolog Vial Sliding Scale -) 1 vial SQ ACHS [facility] PRN Reason: Protocol Last Admin: 04/19/17 12:24 Dose: Not Given Isosorbide Mononitrate (Imdur -) 30 mg PO DAILY [facility] Last Admin: 04/19/17 10:02 Dose: 30 mg Levetiracetam (Keppra -) 500 mg PO BID [facility] Last Admin: 04/19/17 10:02 Dose: 500 mg Losartan Potassium (Cozaar -) 100 mg PO DAILY [facility] Last Admin: 04/19/17 10:01 Dose: 100 mg Sitagliptin Phosphate (Januvia -) 50 mg PO AM [facility] Last Admin: 04/19/17 06:21 Dose: 50 mg Tamsulosin HCl (Flomax -) 0.4 mg PO DAILY@0830 [facility] Last Admin: 04/19/17 10:02 Dose: 0.4 mg - Objective Vital Signs: Vital Signs Temperature 98.6 F 04/19/17 02:00 Pulse Rate 86 04/19/17 02:00 Respiratory Rate 20 04/19/17 02:00 Blood Pressure 133/65 04/19/17 02:00 O2 Sat by Pulse Oximetry (%) 98 04/18/17 20:16 Constitutional: Yes: Mild Distress Eyes: Yes: WNL HENT: Yes: WNL Neck: Yes: WNL Cardiovascular: Yes: WNL Respiratory: Yes: Cough, On Nasal O2, Rhonchi Gastrointestinal: Yes: WNL Genitourinary: Yes: WNL Musculoskeletal: Yes: Muscle Weakness Extremities: Yes: WNL Edema: No Peripheral Pulses WNL: Yes Integumentary: Yes: WNL Wound/Incision: Yes: Clean/Dry Neurological: Yes: Alert ...Motor Strength: LLE, RLE Psychiatric: Yes: WNL Labs: CBC, BMP 04/19/17 06:40 04/19/17 06:40 INR, PTT INR 1.12 (0.82-1.09) 04/13/17 00:20 Problem List - Problems (1) Pneumonia Code(s): J18.9 - PNEUMONIA, UNSPECIFIED ORGANISM Qualifiers: Pneumonia type: due to unspecified organism Laterality: right Lung location: lower lobe of lung Qualified Code(s): J18.1 - Lobar pneumonia, unspecified organism (2) Abdominal pain Code(s): R10.9 - UNSPECIFIED ABDOMINAL PAIN Qualifiers: Abdominal location: unspecified location Qualified Code(s): R10.9 - Unspecified abdominal pain (3) Abdominal wall mass Code(s): R22.2 - LOCALIZED SWELLING, MASS AND LUMP, TRUNK (4) Altered mental state Code(s): R41.82 - ALTERED MENTAL STATUS, UNSPECIFIED (5) Constipation Code(s): K59.00 - CONSTIPATION, UNSPECIFIED Qualifiers: Constipation type: unspecified constipation type Qualified Code(s): K59.00 - Constipation, unspecified (6) Lethargy Code(s): R53.83 - OTHER FATIGUE (7) Leukocytosis Code(s): D72.829 - ELEVATED WHITE BLOOD CELL COUNT, UNSPECIFIED (8) Seizure Code(s): R56.9 - UNSPECIFIED CONVULSIONS (9) Sepsis Code(s): A41.9 - SEPSIS, UNSPECIFIED ORGANISM Qualifiers: Sepsis type: sepsis due to unspecified organism Qualified Code(s): A41.9 - Sepsis, unspecified organism Assessment/Plan MRI BRAIN NO ACUTE CHANGES NEURO F/U IV ABX ABD STILL DISTENDED, + BM TODAY APPETITE IS GOOD OOB TO CHAIR SWALLOW EVAL
[2017-04-19] MEDS: DEXTROSE 5%-NORMAL SALINE 1,000 ML IV SCH (22:06)
[2017-04-19] MEDS: ALBUTEROL SO4 2.5/IPRATROPIUM 0.5 INH SOL 3 ML VIAL.NEB. NEB PRN (22:20)
[2017-04-20] MEDS: INSULIN SLIDING SCALE (NOVOLOG) 1 VIAL SQ SCH ×3 (06:25→17:49)
[2017-04-20] MEDS: sitaGLIPtin PHOSPHATE 50 MG TABLET PO SCH (06:26)
[2017-04-20] MEDS: TAMSULOSIN HCL 0.4 MG CAP.ER.24H (FP) PO SCH (09:00)
--- NOTE | 2017-04-20 11:17 | PN ---
Progress Note, Physician History of Present Illness: PULMONARY ALERT,NAD,-SOB,-COUGH - Current Medication List Current Medications: Active Medications Acetaminophen (Tylenol -) 650 mg PO Q4H PRN PRN Reason: FEVER OR PAIN Last Admin: 04/17/17 19:40 Dose: 650 mg Albuterol/Ipratropium (Duoneb -) 1 amp NEB Q4H PRN PRN Reason: SHORTNESS OF BREATH Last Admin: 04/19/17 22:20 Dose: 1 amp Amlodipine Besylate (Norvasc -) 10 mg PO DAILY [facility] Last Admin: 04/19/17 10:02 Dose: 10 mg Aspirin (Asa -) 81 mg PO DAILY [facility] Last Admin: 04/19/17 10:02 Dose: 81 mg Carvedilol (Coreg -) 25 mg PO DAILY [facility] Last Admin: 04/19/17 10:01 Dose: 25 mg Heparin Sodium (Porcine) (Heparin -) 5,000 unit SQ BID [facility] Last Admin: 04/19/17 22:06 Dose: 5,000 unit Dextrose/Sodium Chloride (D5-Ns -) 1,000 mls @ 80 mls/hr IV ASDIR [facility] Last Admin: 04/19/17 22:06 Dose: Not Given CEFTRIAXONE 1 G/50 ML PREMIX (Ceftriaxone 1 Gm-D5w Bag) 50 mls @ 100 mls/hr IVPB DAILY [facility] Stop: 04/24/17 09:59 Last Admin: 04/19/17 10:02 Dose: 100 mls/hr Insulin Aspart (Novolog Vial Sliding Scale -) 1 vial SQ ACHS [facility] PRN Reason: Protocol Last Admin: 04/20/17 06:25 Dose: Not Given Isosorbide Mononitrate (Imdur -) 30 mg PO DAILY [facility] Last Admin: 04/19/17 10:02 Dose: 30 mg Levetiracetam (Keppra -) 500 mg PO BID [facility] Last Admin: 04/19/17 22:06 Dose: 500 mg Losartan Potassium (Cozaar -) 100 mg PO DAILY [facility] Last Admin: 04/19/17 10:01 Dose: 100 mg Sitagliptin Phosphate (Januvia -) 50 mg PO AM [facility] Last Admin: 04/20/17 06:26 Dose: 50 mg Tamsulosin HCl (Flomax -) 0.4 mg PO DAILY@0830 [facility] Last Admin: 04/19/17 10:02 Dose: 0.4 mg - Objective Vital Signs: Vital Signs Temperature 97.4 F L 04/20/17 02:00 Pulse Rate 99 H 04/20/17 02:00 Respiratory Rate 20 04/20/17 02:00 Blood Pressure 119/53 04/20/17 02:00 O2 Sat by Pulse Oximetry (%) 98 04/19/17 21:00 Constitutional: Yes: Well Nourished, Calm Eyes: Yes: WNL HENT: Yes: WNL Neck: Yes: WNL Cardiovascular: Yes: Regular Rate and Rhythm, S1, S2 Respiratory: Yes: Rales (FEW BIBASILAR RALES) Gastrointestinal: Yes: Normal Bowel Sounds, Soft Extremities: Yes: WNL Edema: No Problem List - Problems (1) Altered mental state Code(s): R41.82 - ALTERED MENTAL STATUS, UNSPECIFIED (2) Lethargy Code(s): R53.83 - OTHER FATIGUE (3) Leukocytosis Code(s): D72.829 - ELEVATED WHITE BLOOD CELL COUNT, UNSPECIFIED (4) Seizure Code(s): R56.9 - UNSPECIFIED CONVULSIONS Assessment/Plan IMP ALTERED MENTAL STATUS LIKELY TOXIC METABOLIC ENCEPHALOPATHY IMPROVED RLL PNEUMONIA ASHD CHF H/O SEIZURE DISORDER HTN DM DEMENTIA PLAN CONTINUE ANTIBIOTICS PER ID INHALED BRONCHODILATORS DVT PROPHYLAXIS DR LAMAS Problem List - Problems (1) Altered mental state Code(s): R41.82 - ALTERED MENTAL STATUS, UNSPECIFIED (2) Lethargy Code(s): R53.83 - OTHER FATIGUE (3) Leukocytosis Code(s): D72.829 - ELEVATED WHITE BLOOD CELL COUNT, UNSPECIFIED (4) Seizure Code(s): R56.9 - UNSPECIFIED CONVULSIONS
--- NOTE | 2017-04-20 11:41 | DS ---
Physical Examination Vital Signs: Vital Signs Temperature 97.4 F L 04/20/17 02:00 Pulse Rate 99 H 04/20/17 02:00 Respiratory Rate 20 04/20/17 02:00 Blood Pressure 119/53 04/20/17 02:00 O2 Sat by Pulse Oximetry (%) 98 04/19/17 21:00 Findings/Remarks: awake alert feeling better cleared by dr [facility] to go back to [place] Constitutional: Yes: No Distress Eyes: Yes: WNL HENT: Yes: WNL Neck: Yes: WNL Cardiovascular: Yes: WNL Respiratory: Yes: WNL Gastrointestinal: Yes: WNL Renal/: Yes: WNL Musculoskeletal: Yes: WNL Extremities: Yes: WNL Edema: No Peripheral Pulses WNL: Yes Integumentary: Yes: WNL Wound/Incision: Yes: Clean/Dry Neurological: Yes: Pre-Existing Deficit ...Motor Strength: LLE, RLE Labs: CBC, BMP 04/19/17 06:40 04/19/17 06:40 Discharge Summary Reason For Visit: AMS Current Active Problems Abdominal pain (Acute) Abdominal wall mass (Acute) Altered mental state (Acute) Constipation (Acute) Lethargy (Acute) Leukocytosis (Acute) Pneumonia (Acute) Vomiting alone (Acute) Procedures: Principal: ct chest Hospital Course: pneumonia toxic metabolic treated with iv abx, nebs, 02 support dc back on augmentin Condition: Improved - Instructions Diet, Activity, Other Instructions: low sodium augmentin for 5 days, bacid for 30 days Referrals: Zuhair Leigh MD [Primary Care Provider] - Disposition: [facility] - Home Medications Comprehensive Discharge Medication List: Ambulatory Orders Amlodipine Besylate 10 mg PO DAILY 04/13/17 Aspirin 81 mg PO DAILY 04/13/17 Carvedilol [Coreg] 25 mg PO DAILY 04/13/17 Isosorbide Mononitrate [Isosorbide Mononitrate ER] 30 mg PO DAILY 04/13/17 Levetiracetam 500 mg PO DAILY 04/13/17 Linagliptin [Tradjenta] 5 mg PO DAILY 04/13/17 Losartan Potassium 100 mg PO DAILY 04/13/17 Tamsulosin HCl 0.4 mg PO DAILY 04/13/17
[2017-04-20] MEDS ORDERED: LACTOBACILLUS ACIDOPHILUS 1 EACH TAB (FP) PO SCH (11:45)
--- NOTE | 2017-04-20 11:45 | CONSULT ---
Admitting History and Physical - Primary Care Physician PCP: Marycruz Ramirez - Admission History of Present Illness: Per EMR: 77 year old male, with a significant medical history of hyertension, hyperlipidemia, CAD, CHF, and seizures, who presents to the emergency department via ems from [facility] for evaluation of altered mental status as per nursing staff today. As per nurse, the report given to her was that the patient became increasingly confused and vomited some undigested food after dinner. ALTERED MENTAL STATUS LIKELY TOXIC METABOLIC ENCEPHALOPATHY IMPROVED RLL PNEUMONIA ASHD CHF H/O SEIZURE DISORDER HTN DM DEMENTIA Improving, now with good appetite, per staff and pending d/c. This is my first contact with this pt. History Source: Medical Record Limitations to Obtaining History: Dementia, Language Barrier - Past Medical History [employer]: Yes: Dementia, Seizure Cardiovascular: Yes: CAD, CHF, HTN, Hyperlipdemia Gastrointestinal: Yes: Constipation Endocrine: Yes: Diabetes Mellitus - Past Surgical History Past Surgical History: Yes: None (pt denies abdominal surgery) - Smoking History Smoking history: Unknown if ever smoked Have you smoked in the past 12 months: No Aproximately how many cigarettes per day: 15 - Alcohol/Substance Use Hx Alcohol Use: No History - Admission Reason For Visit: AMS - Diagnostics X-ray: Report Reviewed CT Scan: Report Reviewed - General Mental Status: Awake and Alert, Able to Follow Commands Attention: Distractible, Mild Impairment Ability to Follow Directions: Fair - Hearing Hearing: Normal Hearing Aide: No Speech Evaluation - Communication Primary Language: [id number] Communication: Yes: Language Barrier - Speech Production Intelligibility: Yes: Mildly Impaired - Speech Characteristics Voice Loudness: Normal Voice Pitch: Yes: Normal Voice Phonatory-based Quality: Yes: Normal Speech Pattern: Impaired Speech Clarity: < 75% Nasal Resonance: Normal Articulation: Yes: Imprecise - Language/Auditory Comprehension Follows: Yes: 1 Stage Simple Commands - Swallow Evaluation/Bedside Assessment Current Nutritional Intake: Regular, Thin Liquids Dentition: Yes: Edentulous (only a couple of functional teeth.) Lingual Movement: Symmetric Velopharyngeal Movement: Normal Laryngeal Elevation: WFL Laryngeal Movement: Able to Palpate Labial Seal: WFL Chewing: Impaired (Fairly efficient with poor dentition. Extended mastication.) Timing of Swallow: Delayed Coughing/Throat Clear: Yes (1 instance of hard, responsive cough.) Recommendations - Speech Evaluation, Impression/Plan Impression: Intermittemnt responsive cough, following PO intake and RLL PNA, suggestive of intermittent aspiration. - Disposition Discharge to: [facility] - Dysphagia Impressions/Plan Dysphagia Impressions: Mild Impairment, Ongoing Evaluation, Suspect Aspiration *Silent aspiration: cannot be R/O at bedside Dysphagia Treatment Plan: Small Bites, Chin Tuck/Down, Safe Rate, OOB for meals , OOB for 1 h. after meals Recommendations: Modified Barium Swallow - Recommendations Diet Consistency: Regular (soft, easy to chew) Medication Administration: Whole with water Liquids: Thin Liquids
[2017-04-20] MEDS: ASPIRIN 81 MG CHEWABLE TABLETS PO SCH (11:58)
[2017-04-20] MEDS: CARVEDILOL 25 MG TABLET (FP) PO SCH (11:58)
[2017-04-20] MEDS: ISOSORBIDE MONONITRATE 30 MG TAB.SR.24H (FP) PO SCH (11:59)
[2017-04-20] MEDS: levETIRAcetam 500 MG TABLET (FP) PO SCH (11:59)
[2017-04-20] MEDS: amLODIPine BESYLATE 10 MG TABLET (FP) PO SCH (11:59)
[2017-04-20] MEDS: LOSARTAN POTASSIUM 50 MG TABLET (FP) PO SCH (11:59)
[2017-04-20] MEDS ORDERED: INSULIN (NOVOLOG) ASPART 100 UNITS/ML 10ML VIAL ONE (12:23)
[2017-04-20] MEDS: AMOX TR/POT CLAV 500MG/125MG TABLETS (FP) PO SCH ×2 (13:05→18:42)
[2017-04-20 20:04] VITALS: BP 120/60; PULSE 76; TEMP 98
[2017-04-22 14:19] LABS: A/G RATIO 0.8 (0.7-1.7); ALBUMIN 2.6 g/dL (2.9-4.4); ALPHA-1-GLOBULIN 0.3 g/dL (0.0-0.4); BETA GLOBULIN 0.7 g/dL (0.7-1.3); GAMMA GLOBULIN 1.7 g/dL (0.4-1.8); GLOBULIN, TOTAL 3.3 g/dL (2.2-3.9); M-SPIKE Not Observed g/dL (Not Observed); TOTAL PROTEIN 5.9 g/dL (6.0-8.5)
== END 2017-04-20 20:03 | DRG 177 ==
LOC: JER 22:29 → JERBED 04-13 06:42 → J5S 04-13 09:20 → J4W 04-14 20:30
PROVIDERS: ADMIT Family Medicine; ATTEND Family Medicine
DX: J69.0 Pneumonitis due to inhalation of food and vomit (principal); G92 Toxic encephalopathy; J98.11 Atelectasis; D72.829 Elevated white blood cell count, unspecified; I25.10 Atherosclerotic heart disease of native coronary artery without angina pectoris; I11.0 Hypertensive heart disease with heart failure; I50.9 Heart failure, unspecified; F03.90 Unspecified dementia, unspecified severity, without behavioral disturbance, psychotic disturbance, mood disturbance, and anxiety; R41.82 Altered mental status, unspecified; E78.5 Hyperlipidemia, unspecified
CPT/HCPCS: 36415; 36600; 70450-TC; 70551-TC; 71010-TC; 71250-TC; 74176-TC; 80048; 80053; 81003; 81015; 82272; 82550; 82607; 82728; 82747; 82784; 82803; 83540; 83550; 83605; 83615; 84155; 84165; 84484; 85014; 85025; 85027; 85044; 85610; 85651; 86140; 86334; 86850; 86900; 86901; 87040; 87086; 93005; 93010; 94010; 94640; 97116-GP; 97161-GP; 99283-25; J1644